=== PATIENT | male | born 1965 | race Caucasian/White ===

== ENCOUNTER 2018-03-06 16:37 | Inpatient (IN) | payer MEDICAID ==
[2018-03-06] MEDS ORDERED: SODIUM CHLORIDE 0.9% 1,000 ML IV STA ×4 (16:40→20:18)
--- NOTE | 2018-03-06 16:41 | ED ---
Chest Pain HPI - General Source: RN notes reviewed, old records reviewed - History of Present Illness Complaint: other -: hour(s) Onset: during exertion Pain Location: substernal Pain Radiation: none Severity: moderate Severity scale (1-10): 7 Consistency: constant Improves With: nothing Worsens With: nothing Anginal Symptoms: diaphoresis Other Symptoms: palpitations <Raffi Downs - Last Filed: 03/06/18 20:18> <Randy Kapoor - Last Filed: 03/06/18 23:26> - General Stated Complaint: Palpitations Time Seen by Provider: 03/06/18 16:40 - History of Present Illness Initial Comments: This is a 53-year-old male to the ER for evaluation. Patient has history of SVT. Patient has elevated heart rate presented ER today for elevated heart discernible shoveling snow. No chest pain. Per EMS patient was given 60 1212 of adenosine as well as cardioversion with no significant help. Patient does admit to palpitations and tachycardia, denies. (Raffi Downs) - Related Data Home Medications Medication Instructions Recorded Confirmed Amitriptyline HCl [Elavil] 150 mg PO HS 03/06/18 03/06/18 HYDROcodone/APAP 7.5-325MG [[place] 1 tab PO Q4H PRN 03/06/18 03/06/18 7.5-325] Metoprolol Tartrate [Lopressor] 25 mg PO BID 03/06/18 03/06/18 Omeprazole [PriLOSEC] 20 mg PO DAILY 03/06/18 03/06/18 Allergies Allergy/AdvReac Type Severity Reaction Status Date / Time No Known Allergies Allergy Verified 03/06/18 17:20 Review of Systems ROS Other: All systems not noted in ROS Statement are negative. <Raffi Downs - Last Filed: 03/06/18 20:18> ROS Other: All systems not noted in ROS Statement are negative. <Randy Kapoor - Last Filed: 03/06/18 23:26> ROS Statement: Those systems with pertinent positive or pertinent negative responses have been documented in the HPI. EKG Findings - EKG Comments: EKG Findings:: EKG shows sinus tachycardia rate of 47, WI 140, QRS 1:30, QTc 448 <RosRaffi talley - Last Filed: 03/06/18 20:18> General Exam General appearance: alert, anxious, in distress Head exam: Present: atraumatic, normocephalic, normal inspection Eye exam: Present: normal appearance, PERRL, EOMI. Absent: scleral icterus, conjunctival injection, periorbital swelling ENT exam: Present: normal exam, mucous membranes moist Neck exam: Present: normal inspection. Absent: tenderness, meningismus, lymphadenopathy Respiratory exam: Present: normal lung sounds bilaterally. Absent: respiratory distress, wheezes, rales, rhonchi, stridor Cardiovascular Exam: Present: tachycardia, normal heart sounds. Absent: systolic murmur, diastolic murmur, rubs, gallop, clicks GI/Abdominal exam: Present: soft, normal bowel sounds. Absent: distended, tenderness, guarding, rebound, rigid Extremities exam: Present: normal inspection, full ROM, normal capillary refill. Absent: tenderness, pedal edema, joint swelling, calf tenderness Back exam: Present: normal inspection Neurological exam: Present: alert, oriented X3, CN II-XII intact Psychiatric exam: Present: normal affect, normal mood Skin exam: Present: warm, dry, intact, normal color. Absent: rash <Raffi Downs B - Last Filed: 03/06/18 20:18> Course <Raffi Downs B - Last Filed: 03/06/18 20:18> <Randy Kapoor D - Last Filed: 03/06/18 23:26> Vital Signs 03/06/18 03/06/18 03/06/18 17:11 17:13 17:41 Temperature Pulse Rate 184 H 163 H Pulse Rate [ 186 H Conditioning Machine Operator ] Respiratory 16 16 Rate Blood Pressure 124/82 89/73 O2 Sat by Pulse 96 96 Oximetry 03/06/18 03/06/18 03/06/18 18:00 18:16 19:00 Temperature 98.3 F Pulse Rate 156 H 149 H 151 H Pulse Rate [ Conditioning Machine Operator ] Respiratory 16 16 Rate Blood Pressure 101/87 96/63 O2 Sat by Pulse 97 99 Oximetry 03/06/18 03/06/18 03/06/18 19:18 19:50 21:00 Temperature 97.9 F Pulse Rate 151 H 161 H Pulse Rate [ Conditioning Machine Operator ] Respiratory 16 18 Rate Blood Pressure 101/54 113/52 96/62 O2 Sat by Pulse 98 97 Oximetry 03/06/18 03/06/18 03/06/18 21:42 22:00 22:20 Temperature 97.5 F L Pulse Rate 160 H 144 H 144 H Pulse Rate [ Conditioning Machine Operator ] Respiratory 16 Rate Blood Pressure 104/75 O2 Sat by Pulse 98 Oximetry - Reevaluation(s) Reevaluation #1: 03/06/18 20:10 Medical record reviewed (Raffi Downs) Reevaluation #2: 03/06/18 20:10 Patient given Cardizem 15 mg 2, metoprolol 5 mg. 03/06/18 20:19 A she given metoprolol 5 mg again (Raffi Downs) Chest Pain MDM <Raffi Downs - Last Filed: 03/06/18 20:18> <Randy Kapoor - Last Filed: 03/06/18 23:26> - MDM 53 male to the ED co SVT, palpitations, failing rate control, spoke with cardiology (Raffi Downs) While awaiting transfer to intensive care unit received a call from documentation improvement specialist Dr. Loera who is checking up on patient. Patient had been given the bolus of amiodarone. He request that patient had attempted cardioversion after 30 minutes if patient had not converted. Discussed risk and benefits of cardioversion with patient. Patient did not want to receive cardioversion. Patient and patient's family member requested I contact patient's qa developer. Spoke with Dr. Pollard from [facility] who is a partner of Dr. Araujo patient's EP doctor recommends that patient be continued on amiodarone drip. He does not recommend cardioversion at this time. Dr. Pollard is open to patient being transferred however is not urgent and given that transportation conditions due to snow he does not believe that transfer is necessary immediately. Patient does request to be admitted to intensive care unit here at our hospital. He will yet decided if he wants to be transferred to [facility] to be under the care of his established EP documentation improvement specialist. Patient continues to be improved with amiodarone drip. His heart rate is now in the 140s. Patient's hemodynamics are stable. (Randy Kapoor) Critical Care Time Critical Care Time: Yes Total Critical Care Time: 65 <Raffi Downs - Last Filed: 03/06/18 20:18> Disposition Is patient prescribed a controlled substance at d/c from ED?: No <Raffi Downs - Last Filed: 03/06/18 20:18> <Randy Kapoor - Last Filed: 03/06/18 23:26> Clinical Impression: Tachycardia, Palpitations, Supraventricular tachycardia Disposition: ADMITTED IP TO THIS HOSP Condition: Fair Referrals: Nonstaff,Physician [REFERRING] - 1-2 days
[2018-03-06] MEDS ORDERED: DILTIAZEM DRIP BOLUS FROM BAG 1 MG SOLN IV ONE ×2 (16:57→18:13)
[2018-03-06 17:01] LABS: Basophils # (A) 0.1 k/uL (0-0.2); Basophils % (A) 1 %; Eosinophils # (A) 2.5 k/uL (0-0.7); HGB 15.1 gm/dL (13.0-17.5); Lymphocytes # (A) 2.5 k/uL (1.0-4.8); Lymphocytes % (A) 23 %; MCH 29.9 pg (25.0-35.0); MCHC 32.8 g/dL (31.0-37.0); MCV 91.3 fL (80.0-100.0); Mean Platelet Volume 6.4; Monocytes # (A) 0.4 k/uL (0-1.0); Monocytes % (A) 4 %; Neutrophils % (A) 47 %; Platelet Count 281 k/uL (150-450); RBC 5.04 m/uL (4.30-5.90); RDW 13.5 % (11.5-15.5); WBC 10.6 k/uL (3.8-10.6)
[2018-03-06 17:03] LABS: Eosinophils % (A) 23 %
[2018-03-06 17:10] LABS: D-Dimer 0.3 mg/L FEU (<0.60); INR 0.9 (<1.2); Partial Thromboplastin Time 24.6 sec (22.0-30.0); Prothrombin Time 10.1 sec (9.0-12.0)
[2018-03-06 17:12] LABS: ALT 37 U/L (21-72); AST 20 U/L (17-59); Albumin 4.1 g/dL (3.5-5.0); Alkaline Phosphatase 100 U/L (38-126); Anion Gap 8 mmol/L; Blood Urea Nitrogen 19 mg/dL (9-20); Calcium 9.4 mg/dL (8.4-10.2); Carbon Dioxide 24 mmol/L (22-30); Chloride 110 mmol/L (98-107); Creatine Kinase 91 U/L (55-170); Glucose 123 mg/dL (74-99); Magnesium 1.7 mg/dL (1.6-2.3); Phosphorus 3.6 mg/dL (2.5-4.5); Potassium 4.4 mmol/L (3.5-5.1); Sodium 142 mmol/L (137-145); Total Bilirubin 0.3 mg/dL (0.2-1.3); Total Protein 7.1 g/dL (6.3-8.2)
[2018-03-06 17:23] LABS: Creatine Kinase MB 0.7 ng/mL (0.0-2.4); Troponin I <0.012 ng/mL (0.000-0.034)
[2018-03-06] MEDS: DILTIAZEM 50 MG in SODIUM CHLORIDE 0.9% 40 ML IV SCH (17:31)
[2018-03-06] MEDS ORDERED: METOPROLOL TARTRATE 5 MG/5 ML VIAL IVP STA ×2 (19:01→20:11)
[2018-03-06] MEDS ORDERED: NITROGLYCERIN SL TABS 0.4 MG TAB SUBLINGUAL PRN (20:20)
[2018-03-06] MEDS ORDERED: METOPROLOL TARTRATE 5 MG/5 ML VIAL IVP SCH (20:30)
[2018-03-06] MEDS ORDERED: DEXTROSE 5% IN WATER 100 ML with AMIODARONE 150 MG IV ONE (20:44)
[2018-03-06] MEDS ORDERED: AMIODARONE 450 MG in DEXTROSE 5% IN WATER 250 ML IV ONE ×2 (20:44)
[2018-03-06] MEDS ORDERED: clonazePAM 0.5 MG TAB PO STA (21:21)
[2018-03-06] MEDS: MAGNESIUM SULFATE-D5W PMX 1 GM in DEXTROSE/WATER 1 100ML.BAG IVPB SCH (22:33)
[2018-03-06] MEDS ORDERED: ADENOSINE 3 MG/ML 2 ML VIAL IVP STA (22:48)
[2018-03-06] MEDS ORDERED: ETOMIDATE 2 MG/ML 10 ML VIAL IVP STA (22:48)
[2018-03-06 23:10] LABS: Creatine Kinase MB 1.2 ng/mL (0.0-2.4)
[2018-03-06 23:25] LABS: Troponin I 0.256 ng/mL (0.000-0.034)
[2018-03-07] MEDS: MAGNESIUM SULFATE-D5W PMX 1 GM in DEXTROSE/WATER 1 100ML.BAG IVPB SCH ×2 (02:31→05:20)
[2018-03-07] MEDS: METOPROLOL TARTRATE 50 MG TAB PO SCH ×2 (02:35→08:56)
[2018-03-07 03:11] LABS: Glucose,Whole Blood 104 mg/dL (75-99)
[2018-03-07] MEDS: SODIUM CHLORIDE 0.9% 1,000 ML IV SCH ×3 (05:21→17:56)
[2018-03-07 05:35] LABS: Anion Gap 5 mmol/L; Blood Urea Nitrogen 14 mg/dL (9-20); Carbon Dioxide 22 mmol/L (22-30); Chloride 113 mmol/L (98-107); Cholesterol 138 mg/dL (<200); Glucose 118 mg/dL (74-99); HDL Cholesterol 34 mg/dL (40-60); LDL Cholesterol,Calculated 87 mg/dL (0-99); Magnesium 2.2 mg/dL (1.6-2.3); Phosphorus 2.9 mg/dL (2.5-4.5); Potassium 4.4 mmol/L (3.5-5.1); Sodium 140 mmol/L (137-145); Triglycerides 83 mg/dL (<150)
[2018-03-07 05:44] LABS: Basophils # (A) 0.1 k/uL (0-0.2); Basophils % (A) 0 %; Eosinophils # (A) 1.8 k/uL (0-0.7); Eosinophils % (A) 15 %; HCT 43.5 % (39.0-53.0); HGB 13.6 gm/dL (13.0-17.5); Lymphocytes # (A) 2.7 k/uL (1.0-4.8); Lymphocytes % (A) 23 %; MCH 29.3 pg (25.0-35.0); MCHC 31.4 g/dL (31.0-37.0); MCV 93.4 fL (80.0-100.0); Mean Platelet Volume 6.8; Monocytes # (A) 0.6 k/uL (0-1.0); Monocytes % (A) 5 %; Neutrophils # (A) 6.5 k/uL (1.3-7.7); Neutrophils % (A) 54 %; Platelet Count 228 k/uL (150-450); RBC 4.65 m/uL (4.30-5.90); RDW 13.6 % (11.5-15.5)
[2018-03-07] MEDS: DILTIAZEM 50 MG in SODIUM CHLORIDE 0.9% 40 ML IV SCH ×2 (05:45→09:00)
[2018-03-07 05:58] LABS: Creatine Kinase MB 2.1 ng/mL (0.0-2.4)
[2018-03-07 06:07] LABS: Troponin I 0.265 ng/mL (0.000-0.034)
--- NOTE | 2018-03-07 07:27 | P.CRDCN ---
History of Present Illness Consult date: 03/07/18 Chief complaint: Palpitation History of present illness: This is a pleasant 53-year-old gentleman with a past medical history significant for history of ventricular tachycardia who follows with a director of elementary education in [facility] was brought to the emergency room complaining of heart racing. The patient was in his usual state of health yesterday when he was trying to help shoveling the snow outside and suddenly he felt his heart started racing. No symptoms of dizziness or lightheadedness. No syncope. No chest pain or chest discomfort. He just felt weak. Ambulance was called and the patient was found to be in wide complex tachycardia with RBBB morphology. He was given 6 and then 12 mg of adenosine without any success. Subsequently he underwent synchronized cardioversion which was also unsuccessful. The patient was started on amiodarone IV and was brought to the emergency room. The patient stated that about a year and a half ago he was diagnosed with ventricular tachycardia and he underwent an EP study and attempted ablation which was unsuccessful. At that point he was placed on metoprolol by mouth. He was discharged in stable medical condition. He stated that he was taking his medications on a regular basis. I did review the EKGs during this admission and it did show wide complex tachycardia with RBBB morphology. No discrete atrial wave seen. The troponin is a slightly abnormal which could be related to the tachycardia and heart rate in 134 the last 12 hours. He continues to be on amiodarone IV at this point. He continues to be asymptomatic and denies having any chest pain or discomfort or shortness of breath or dizziness or lightheadedness. I'm going to obtain an echocardiogram was Doppler to evaluate the left ventricle systolic function. Also check TSH and free T4 to rule out hypo-/ hyperthyroidism. Also will consult EP to see the patient. Past Medical History Past Medical History: GERD/Reflux, Supraventricular Tachycardia (SVT) History of Any Multi-Drug Resistant Organisms: None Reported Past Surgical History: Cardiac Ablation Additional Past Surgical History / Comment(s): nasal Past Psychological History: Depression Smoking Status: Former smoker Past Alcohol Use History: Rare Past Drug Use History: None Reported - Past Family History Father Family Medical History: Diabetes Mellitus Mother History Unknown: Yes Medications and Allergies Home Medications Medication Instructions Recorded Confirmed Type Amitriptyline HCl [Elavil] 150 mg PO HS 03/06/18 03/06/18 History HYDROcodone/APAP 7.5-325MG [[place] 1 tab PO Q4H PRN 03/06/18 03/06/18 History 7.5-325] Metoprolol Tartrate [Lopressor] 25 mg PO BID 03/06/18 03/06/18 History Omeprazole [PriLOSEC] 20 mg PO DAILY 03/06/18 03/06/18 History clonazePAM [KlonoPIN] 0.5 mg PO HS 03/07/18 03/07/18 History Allergies Allergy/AdvReac Type Severity Reaction Status Date / Time No Known Allergies Allergy Verified 03/06/18 17:20 Physical Exam Vitals: Vital Signs Temp Pulse Pulse Resp BP Pulse Ox 03/07/18 06:30 133 H 19 119/89 03/07/18 06:00 134 H 19 114/92 97 03/07/18 05:30 134 H 20 119/92 95 03/07/18 05:00 133 H 15 119/92 97 03/07/18 04:30 137 H 35 H 126/99 96 03/07/18 04:00 97.9 F 131 H 88 H 114/89 94 L 03/07/18 03:30 128 H 8 L 112/85 96 03/07/18 03:15 97 03/07/18 03:10 133 H 16 03/07/18 03:00 130 H 15 96 03/07/18 02:30 97.9 F 134 H 18 120/86 98 03/07/18 02:00 138 H 16 107/83 97 03/07/18 01:30 138 H 17 114/86 03/07/18 01:04 98.0 F 141 H 18 95/78 98 03/07/18 01:00 142 H 16 96/80 98 03/07/18 00:30 146 H 7 L 98/78 97 03/07/18 00:00 146 H 0 L 103/79 97 03/06/18 23:00 97.8 F 146 H 16 103/79 99 03/06/18 22:20 144 H 03/06/18 22:00 144 H 03/06/18 21:42 97.5 F L 160 H 16 104/75 98 03/06/18 21:00 97.9 F 161 H 18 96/62 97 01/28/19 19:50 113/52 03/06/18 19:18 151 H 16 101/54 98 03/06/18 19:00 98.3 F 151 H 16 96/63 99 03/06/18 18:16 149 H 03/06/18 18:00 156 H 16 101/87 97 03/06/18 17:41 163 H 16 89/73 96 03/06/18 17:13 184 H 16 124/82 96 03/06/18 17:11 186 H Intake and Output 03/06/18 03/07/18 03/07/18 22:59 06:59 14:59 Intake Total 400 Output Total 300 Balance 100 Intake: IV 400 Sodium Chloride 0.9% 1, 400 000 ml @ 100 mls/hr IV . Q10H STA Rx#:[id number] Output: Urine 300 Other: # Voids 0 Weight 90.718 kg - Constitutional General appearance: no acute distress - Respiratory Respiratory: bilateral: CTA - Cardiovascular Rhythm: regular Heart sounds: normal: S1, S2 Results 03/07/18 04:53 03/07/18 04:53 Cardiac Enzymes 03/06/18 03/06/18 03/06/18 Range/Units 16:45 16:45 22:19 AST 20 (17-59) U/L CK-MB (CK-2) 0.7 1.2 (0.0-2.4) ng/mL Troponin I <0.012 0.256 H* (0.000-0.034) ng/mL 03/07/18 Range/Units 04:53 AST (17-59) U/L CK-MB (CK-2) 2.1 (0.0-2.4) ng/mL Troponin I 0.265 H* (0.000-0.034) ng/mL Coagulation 03/06/18 Range/Units 16:45 PT 10.1 (9.0-12.0) sec APTT 24.6 (22.0-30.0) sec Lipids 03/07/18 Range/Units 04:53 Triglycerides 83 (<150) mg/dL Cholesterol 138 (<200) mg/dL HDL Cholesterol 34 L (40-60) mg/dL CBC 03/06/18 03/07/18 Range/Units 16:45 04:53 WBC 10.6 12.0 H (3.8-10.6) k/uL RBC 5.04 4.65 (4.30-5.90) m/uL Hgb 15.1 13.6 (13.0-17.5) gm/dL Hct 46.0 43.5 (39.0-53.0) % Plt Count 281 228 (150-450) k/uL Comprehensive Metabolic Panel 03/06/18 03/07/18 Range/Units 16:45 04:53 Sodium 142 140 (137-145) mmol/L Potassium 4.4 4.4 (3.5-5.1) mmol/L Chloride 110 H 113 H (98-107) mmol/L Carbon Dioxide 24 22 (22-30) mmol/L BUN 19 14 (9-20) mg/dL Creatinine 0.84 0.66 (0.66-1.25) mg/dL Glucose 123 H 118 H (74-99) mg/dL Calcium 9.4 8.0 L (8.4-10.2) mg/dL AST 20 (17-59) U/L ALT 37 (21-72) U/L Alkaline Phosphatase 100 (38-126) U/L Total Protein 7.1 (6.3-8.2) g/dL Albumin 4.1 (3.5-5.0) g/dL Current Medications Generic Name Dose Route Start Last Admin Trade Name Freq PRN Reason Stop Dose Admin Aspirin 325 mg 03/07/18 09:00 Aspirin PO DAILY [facility] Enoxaparin Sodium 40 mg 03/07/18 09:00 Lovenox SQ DAILY SANDI Famotidine 20 mg 03/07/18 09:00 Pepcid PO BID SANDI Diltiazem HCl 50 mg/ Sodium 50 mls @ 5 mls/hr 03/06/18 17:00 03/07/18 05:45 Chloride IV Not Given .Q10H SANDI 5 MG/HR Sodium Chloride 1,000 mls @ 100 mls/hr 03/06/18 20:30 03/07/18 05:21 Saline 0.9% IV 100 mls/hr .Q10H SANDI Administration Amiodarone HCl 450 mg/ 250 mls @ 16.66 mls/hr 03/07/18 05:30 Dextrose/Water IV 03/08/18 05:30 .Q15H1M SANDI 0.5 MG/MIN Metoprolol Tartrate 50 mg 03/06/18 21:00 03/07/18 02:35 Lopressor PO Not Given BID SANDI Nitroglycerin 0.4 mg 03/06/18 20:20 Nitrostat SUBLINGUAL Q5M PRN Chest Pain Intake and Output 03/06/18 03/07/18 03/07/18 22:59 06:59 14:59 Intake Total 400 Output Total 300 Balance 100 Intake: IV 400 Sodium Chloride 0.9% 1, 400 000 ml @ 100 mls/hr IV . Q10H STA Rx#:[id number] Output: Urine 300 Other: # Voids 0 Weight 90.718 kg 03/07/18 04:53 03/07/18 04:53 Assessment and Plan Assessment: Assessment #1 ventricular tachycardia of RBBB morphology. Plan #1 the patient has been maintaining good blood pressure with his heart rate #2 continue amiodarone IV at this point #3 resume metoprolol by mouth #4 continue IV fluid #5 TSH free T4 #6 an echocardiogram was Doppler #7 EP consult #8 follow-up with the patient.
[2018-03-07] MEDS: AMIODARONE 450 MG in DEXTROSE 5% IN WATER 250 ML IV SCH ×4 (08:00→21:16)
--- NOTE | 2018-03-07 08:05 | XR ---
EXAMINATION TYPE: XR chest 1V DATE OF EXAM: 03/07/2018 CLINICAL HISTORY: Shortness of breath with exertion. TECHNIQUE: Single AP portable upright view of the chest is obtained. COMPARISON: None FINDINGS: Defibrillator pad overlies right mid chest. There is chronic parenchymal change without campo spicious focal airspace opacity, pleural effusion, or pneumothorax seen bilaterally. The cardiac silh ouette size is upper limits of normal in size. Osseous structures are intact. IMPRESSION: No suspicious acute pulmonary process.
[2018-03-07] MEDS: ENOXAPARIN 40 MG/0.4 ML SYRINGE SQ SCH (08:56)
[2018-03-07] MEDS: ASPIRIN 325 MG TAB PO SCH (08:56)
[2018-03-07] MEDS: FAMOTIDINE 20 MG TAB PO SCH ×2 (08:56→21:16)
--- NOTE | 2018-03-07 09:48 | CONS ---
CONSULTATION DATE OF SERVICE: 03/07/2018 This is a patient who was admitted on the 03/06 and transferred to the ICU from the ER on March 07. He apparently came in because of rapid heart rate and supraventricular tachycardia. EMS apparently tried cardioversion. They also tried some adenosine 6 mg, 12 mg and 12 mg in succession. In addition, the patient received metoprolol and Cardizem without benefit. Finally, the ER doctor called the patient's obstetrics gyn out at [facility] and amiodarone was recommended. The patient was placed on amiodarone at 0.5 mg/minute. The patient is also getting a 0.9 IV at 100 mL an hour, nasal O2 at 2 L/minute. The patient does have a history of chronic SVT, chronic tobacco dependence in the past, depression, and gastroesophageal reflux disease. The patient had troponins that were elevated at 0.256 and 0.265. TSH was normal. His heart rate is currently about 140 beats per minute. Anyway, the patient was admitted for that reason here to the ICU. I did speak to the ER physician. HOME MEDICATIONS: Include Elavil, [place], metoprolol and Prilosec. ALLERGIES: Denied. PAST MEDICAL HISTORY: Includes gastroesophageal reflux disease, SVT, and depression. The patient also has a previous history of tobacco dependence. Surgical history is remote. Social and family history is not too remarkable, save for the tobacco use. No history of alcohol use. No illicit drug use. REVIEW OF SYSTEMS: CONSTITUTIONAL: Negative. NEUROLOGIC: Negative. HEENT: Negative. CARDIOVASCULAR: Palpitations, tachycardia, chest discomfort. PULMONARY: Negative. GI: Negative. : Negative. RHEUMATOLOGIC/IMMUNOLOGIC: Negative. ENDOCRINOLOGIC: Negative. DERMATOLOGIC: Negative. Current vital signs are reviewed. Temperature is 97.9, heart rate 140, respiratory rate 20, blood pressure 114/92, mean 99. Saturation on 2 L, 97% to 99%. Appears in no acute distress. HEENT examination is grossly unremarkable. Mucous membranes are moist. No oral lesions. Nasal O2 in place. Neck is supple. Full range of motion. No adenopathy or thyromegaly. Neck veins are flat. Cardiovascular examination reveals tachycardia. Heart rate about 135-140 beats per minute. It seems relatively regular. No murmur noted. Lungs are clear. Breath sounds are equal. Abdomen is soft. Bowel sounds are heard. No masses or tenderness. Extremities are intact. No cyanosis, clubbing, or edema. Skin without rash. Neurologic examination is brief but nonfocal. LABS: Reviewed. White count 12, hemoglobin 13.6, hematocrit 43.5, platelet count 228,000. Sodium, potassium normal. Chloride is 113, CO2 is 22; BUN and creatinine were 14 and 0.66. The patient's comprehensive metabolic profile is otherwise normal. I have already mentioned the troponins. TSH was normal at 2.080. Calcium is 8.0. Glucose is noted. Lactic acid is normal at 1.1. Chest x-ray shows no acute cardiopulmonary disease. Medications are reviewed. Currently, the patient is on appropriate medications as mentioned. ASSESSMENT: 1. Acute paroxysmal supraventricular tachycardia in a patient with a history of chronic supraventricular tachycardia. 2. Gastroesophageal reflux disease. 3. Previous history of tobacco use. 4. History of depression. 5. Chest pain, rule out non ST-segment elevation myocardial infarction versus elevated troponin secondary to supply-demand mismatch. PLAN: The patient remains on some saline at 100 mL an hour. The patient is currently on Cordarone or amiodarone 0.5 mg/minute. The patient is receiving nasal O2. Dr. Nicolsa has already seen the patient. The patient will have an echocardiogram. In addition, Dr. Nicolas is going to have his partner, Dr. Iverson see the patient from the electrophysiologic standpoint. There was contact made with the patient's obstetrics gyn over at [facility]. He was the one who recommended the amiodarone. No additional recommendations are made. Prognosis is guarded. MMODL / IJN: [id number] /
[2018-03-07] MEDS ORDERED: PANTOPRAZOLE 40 MG TABLET PO SCH (10:45)
--- NOTE | 2018-03-07 10:51 | P.HPIM ---
History of Present Illness H&P Date: 03/07/18 Chief Complaint: Severe tachycardia, ventricular tachycardia, shortness of breath, GERD and 53-year-old male one of Dr. 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 Patient ended up coming to demurs department pulse rate remain are bound 100 [id number] bpm initially was started on Cardizem drip not successful cardiology were contacted and end up having him start on amiodarone at that point patient was sent to the intensive care unit and Dr. Iverson was notify on his admission. Review of Systems CONSTITUTIONAL: Well-developed no acute respiratory distress. EYES: No icterus sclerae, no conjunctivitis. EARS, NOSE, MOUTH, THROAT, and FACE: No sore throat, lymphadenopathy, carotid bruits or deformity. RESPIRATORY: No SOB cough or wheezes. CARDIOVASCULAR: Positive dyspnea, positive palpitation, positive PND, positive chest pain GASTROINTESTINAL: No Abd pain, Nausea or vomiting, no Diarrhea or constipation, No GI Bleed, no distention or masses. GENITOURINARY: Negative for Hematuria or UTI, no kidney stones. INTEGUMENT/BREAST: Negative for any muscular injury with mild osteoarthritis.. HEMATOLOGIC/LYMPHATIC: Negative for bleed or purpura. MUSCULOSKELTAL: Negative for Myalgia or arthralgia. NEURLOGICAL: No LOC, Sz or syncope, blurred vision dizziness or abnormality.. BEHAVIORAL/PSYCH: Negative. ENDOCRINE: Negative. Past Medical History Past Medical History: GERD/Reflux, Supraventricular Tachycardia (SVT) History of Any Multi-Drug Resistant Organisms: None Reported Past Surgical History: Cardiac Ablation Additional Past Surgical History / Comment(s): nasal Past Psychological History: Depression Smoking Status: Former smoker Past Alcohol Use History: Rare Past Drug Use History: None Reported - Past Family History Father Family Medical History: Diabetes Mellitus Mother History Unknown: Yes Medications and Allergies Home Medications Medication Instructions Recorded Confirmed Type Amitriptyline HCl [Elavil] 150 mg PO HS 03/06/18 03/06/18 History HYDROcodone/APAP 7.5-325MG [Bellflower 1 tab PO Q4H PRN 03/06/18 03/06/18 History 7.5-325] Metoprolol Tartrate [Lopressor] 25 mg PO BID 03/06/18 03/06/18 History Omeprazole [PriLOSEC] 20 mg PO DAILY 03/06/18 03/06/18 History clonazePAM [KlonoPIN] 0.5 mg PO HS 03/07/18 03/07/18 History Allergies Allergy/AdvReac Type Severity Reaction Status Date / Time No Known Allergies Allergy Verified 03/06/18 17:20 Physical Exam Vitals: Vital Signs Temp Pulse Pulse Resp BP Pulse Ox 03/07/18 09:00 142 H 22 126/93 96 03/07/18 08:30 141 H 18 127/93 97 03/07/18 08:00 97.8 F 138 H 133 H 18 129/100 97 03/07/18 07:30 137 H 17 127/93 96 03/07/18 07:00 141 H 14 122/98 96 03/07/18 06:30 133 H 19 119/89 03/07/18 06:00 134 H 19 114/92 97 03/07/18 05:30 134 H 20 119/92 95 03/07/18 05:00 133 H 15 119/92 97 03/07/18 04:30 137 H 35 H 126/99 96 03/07/18 04:00 97.9 F 131 H 88 H 114/89 94 L 03/07/18 03:30 128 H 8 L 112/85 96 03/07/18 03:15 97 03/07/18 03:10 133 H 16 03/07/18 03:00 130 H 15 96 03/07/18 02:30 97.9 F 134 H 18 120/86 98 03/07/18 02:00 138 H 16 107/83 97 03/07/18 01:30 138 H 17 114/86 03/07/18 01:04 98.0 F 141 H 18 95/78 98 03/07/18 01:00 142 H 16 96/80 98 03/07/18 00:30 146 H 7 L 98/78 97 03/07/18 00:00 146 H 0 L 103/79 97 03/06/18 23:00 97.8 F 146 H 16 103/79 99 03/06/18 22:20 144 H 03/06/18 22:00 144 H 03/06/18 21:42 97.5 F L 160 H 16 104/75 98 03/06/18 21:00 97.9 F 161 H 18 96/62 97 03/06/18 19:50 113/52 03/06/18 19:18 151 H 16 101/54 98 03/06/18 19:00 98.3 F 151 H 16 96/63 99 03/06/18 18:16 149 H 03/06/18 18:00 156 H 16 101/87 97 03/06/18 17:41 163 H 16 89/73 96 03/06/18 17:13 184 H 16 124/82 96 03/06/18 17:11 186 H Intake and Output 03/06/18 03/07/18 03/07/18 22:59 06:59 14:59 Intake Total 400 700 Output Total 300 700 Balance 100 0 Intake: IV 400 300 Sodium Chloride 0.9% 1, 400 300 000 ml @ 100 mls/hr IV . Q10H STA Rx#:[id number] Oral 400 Output: Urine 300 700 Other: # Voids 0 0 Weight 90.718 kg General Appearance: Alert, cooperative, no distress, appears stated age. Neck HEENT: Supple, no lymphadenopathy, no thyroid enlargement, no carotid bruits. Lungs: Clear to auscultation without crackles or wheezes no rhonchi, no deformity. Chest Wall: Chest wall normal expansion with deep inspiration no tenderness and no deformity was found on exam, no costochondral pain or discomfort. Heart: Irregular rhythm and rate S1-S2 positive street positive tachycardia with pulse rate running 100 4250 beats per minutes. Back: Symmetric, no curvature, ROM normal, no CVA tenderness. Abdomen: Soft, non-tender, bowel sounds active all four quadrants, no masses, no organomegaly. Extremities: Extremities normal, atraumatic, no cyanosis or edema. Pulses: 2+ and symmetric. Skin: Skin color, texture, tugor normal, no rashes or lesions. Neurologic: Alert oriented x3 cranial nerves II through XII intact, no motor deficit, no abnormal balance or gait. Results CBC & Chem 7: 03/07/18 04:53 03/07/18 04:53 Labs: Abnormal Lab Results - Last 24 Hours (Table) 03/06/18 03/06/18 03/06/18 Range/Units 16:45 16:45 22:19 WBC (3.8-10.6) k/uL Eosinophils # 2.5 H (0-0.7) k/uL Chloride 110 H (98-107) mmol/L Glucose 123 H (74-99) mg/dL POC Glucose (mg/dL) (75-99) mg/dL Calcium (8.4-10.2) mg/dL Troponin I 0.256 H* (0.000-0.034) ng/mL HDL Cholesterol (40-60) mg/dL 03/07/18 03/07/18 03/07/18 Range/Units 03:00 04:53 04:53 WBC 12.0 H (3.8-10.6) k/uL Eosinophils # 1.8 H (0-0.7) k/uL Chloride (98-107) mmol/L Glucose (74-99) mg/dL POC Glucose (mg/dL) 104 H (75-99) mg/dL Calcium (8.4-10.2) mg/dL Troponin I 0.265 H* (0.000-0.034) ng/mL HDL Cholesterol (40-60) mg/dL 03/07/18 Range/Units 04:53 WBC (3.8-10.6) k/uL Eosinophils # (0-0.7) k/uL Chloride 113 H (98-107) mmol/L Glucose 118 H (74-99) mg/dL POC Glucose (mg/dL) (75-99) mg/dL Calcium 8.0 L (8.4-10.2) mg/dL Troponin I (0.000-0.034) ng/mL HDL Cholesterol 34 L (40-60) mg/dL Thrombosis Risk Factor Assmnt - DVT/VTE Prophylaxis DVT/VTE Prophylaxis: Pharmacologic Prophylaxis ordered, Mechanical Prophylaxis ordered - Choose All That Apply Each Factor Represents 1 point: Age 41-60 years, Obesity (BMI >25) Other Risk Factors: No Other congenital or acquired thrombophilia - If yes, enter type in comment: No Thrombosis Risk Factor Assessment Total Risk Factor Score: 2 Thrombosis Risk Factor Assessment Level: Low Risk Assessment and Plan Plan: 1 ventricular tachycardia: Patient still on amiodarone drip currently was seen cardiology, will be seen electrophysiology and if amiodarone doesn't work hopefully will be on different antiarrhythmic. Patient might need cardioversion and eventually probably need to go for ablation therapy. Continue anticoagulation as well. 2 chest pain and mildly elevated troponin: Not a clear whether this is non-ST GA according to patient had completely negative heart cath 2 years ago when he had first episode echocardiogram and further management by cardiology to follow. 3 severe GERD: Has been on omeprazole which will be continued for now. 4 jaw pain: Post with cannot recently with his dentist is supposed to go for further workup on it I can feel or see any abscess patient will be on smaller dose of hydrocodone for pain. 5 chronic depression: Has been on Elavil continue medication still on smaller dose of clonazepam for insomnia as well. 6 GI prophylaxis: Patient is on omeprazole. 7 DVT prophylaxis: Continue anticoagulation for now. CODE STATUS: Full code. Admit patient to inpatient for more than 2 nights.
[2018-03-07] MEDS: HYDROcodone/APAP 7.5-325MG 1 EACH TAB PO PRN ×2 (11:20→17:56)
[2018-03-07 13:38] LABS: Appearance,Urine Clear (Clear); Bilirubin,Urine Negative (Negative); Blood,Urine Negative (Negative); Color,Urine Light Yellow; Glucose,Urine (UA) Negative (Negative); Ketones,Urine Negative (Negative); Leukocyte Esterase,Urine Negative (Negative); Nitrite,Urine Negative (Negative); PH, Urine 6.5 (5.0-8.0); Protein,Urine Negative (Negative); Specific Gravity,Urine 1.011 (1.001-1.035); Urobilinogen,Urine <2.0 mg/dL (<2.0)
--- NOTE | 2018-03-07 18:40 | ECHOF ---
Referral Reason:dysrhythmias MEASUREMENTS -------- HEIGHT: 175.3 cm WEIGHT: 90.7 kg BP: 119/89 IVSd: 1.1 cm (0.6 - 1.1) LVIDd: 4.5 cm (3.9 - 5.3) LVPWd: 1.2 cm (0.6 - 1.1) IVSs: 1.4 cm LVIDs: 3.6 cm LVPWs: 1.2 cm LA Diam: 4.0 cm (2.7 - 3.8) RVIDd: 2.5 cm (< 3.3) LAESV Index (A-L): 29.81 ml/m Ao Diam: 3.5 cm (2.0 - 3.7) LA Diam: 4.2 cm (2.7 - 3.8) AV Cusp: 2.0 cm (1.5 - 2.6) EPSS: 0.2 cm MV E Gustavo: 0.83 m/s MV DecT: 103 ms MV A Gustavo: 0.32 m/s MV E/A Ratio: 20.75 RAP: 5.00 mmHg RVSP: 20.15 mmHg MV EF SLOPE: 217.62 mm/s (70 - 150) MV EXCURSION: 25.34 mm (> 18.000) FINDINGS -------- Undetermined rhythm. This was a technically good study. LV size, wall thickness and systolic function are normal, with an EF greater than 55%. The left awilda tricular size is normal. The right ventricle is normal in size. The left atrium is mildly dilated. LA is midly dilated 29-33ml/m2. The right atrial size is normal. The aortic valve is trileaflet, and appears structurally normal. No aortic stenosis or regurgitation. Mild mitral annular calcification present. Mild mitral regurgitation is present. Mild tricuspid regurgitation present. There is no evidence of pulmonary hypertension. The right v entricular systolic pressure, as measured by Doppler, is 20.15mmHg. There is no pulmonic regurgitation present. The aortic root size is normal. There is no pericardial effusion. CONCLUSIONS -------- 1. LV size, wall thickness and systolic function are normal, with an EF greater than 55%. 2. The left ventricular size is normal. 3. The right ventricle is normal in size. 4. The left atrium is mildly dilated. 5. LA is midly dilated 29-33ml/m2. 6. The right atrial size is normal. 7. The aortic valve is trileaflet, and appears structurally normal. No aortic stenosis or regurgitati on. 8. Mild mitral annular calcification present. 9. Mild mitral regurgitation is present. 10. Mild tricuspid regurgitation present. 11. There is no evidence of pulmonary hypertension. 12. The right ventricular systolic pressure, as measured by Doppler, is 20.15mmHg. 13. There is no pulmonic regurgitation present. 14. The aortic root size is normal. 15. There is no pericardial effusion. [employer] MANAGER: Yane Butler RDCS
[2018-03-07] MEDS: AMITRIPTYLINE HCL 50 MG TAB PO SCH (21:17)
[2018-03-07] MEDS: clonazePAM 0.5 MG TAB PO SCH (21:17)
[2018-03-07] MEDS: VERAPAMIL SR 180 MG TABLET.ER PO SCH (21:17)
[2018-03-08] MEDS: SODIUM CHLORIDE 0.9% 1,000 ML IV SCH (04:40)
[2018-03-08 04:50] LABS: Basophils # (A) 0.1 k/uL (0-0.2); Basophils % (A) 1 %; Eosinophils # (A) 1.2 k/uL (0-0.7); Eosinophils % (A) 11 %; HCT 39.9 % (39.0-53.0); HGB 13.4 gm/dL (13.0-17.5); Lymphocytes # (A) 2.3 k/uL (1.0-4.8); Lymphocytes % (A) 21 %; MCH 31.2 pg (25.0-35.0); MCHC 33.5 g/dL (31.0-37.0); MCV 93.2 fL (80.0-100.0); Mean Platelet Volume 6.8; Monocytes # (A) 0.5 k/uL (0-1.0); Monocytes % (A) 4 %; Neutrophils # (A) 6.6 k/uL (1.3-7.7); Neutrophils % (A) 61 %; Platelet Count 203 k/uL (150-450); RBC 4.28 m/uL (4.30-5.90); RDW 13.3 % (11.5-15.5); WBC 10.8 k/uL (3.8-10.6)
[2018-03-08 05:02] LABS: Anion Gap 5 mmol/L; Blood Urea Nitrogen 13 mg/dL (9-20); Calcium 8.2 mg/dL (8.4-10.2); Carbon Dioxide 22 mmol/L (22-30); Chloride 111 mmol/L (98-107); Glucose 103 mg/dL (74-99); Magnesium 1.8 mg/dL (1.6-2.3); Potassium 4.1 mmol/L (3.5-5.1); Sodium 138 mmol/L (137-145)
[2018-03-08] MEDS ORDERED: Magnesium Replacement Protocol 1 EACH MISC MISCELLANE PRN (05:07)
[2018-03-08] MEDS: MAGNESIUM SULFATE-D5W PMX 1 GM in DEXTROSE/WATER 1 100ML.BAG IVPB SCH ×2 (05:23→06:47)
--- NOTE | 2018-03-08 05:47 | P.PN ---
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 The patient was in his usual state of health yesterday when he was trying to help shoveling the snow outside and suddenly he felt his heart started racing. No symptoms of dizziness or lightheadedness. No syncope. No chest pain or chest discomfort. He just felt weak. Ambulance was called and the patient was found to be in wide complex tachycardia with RBBB morphology. He was given 6 and then 12 mg of adenosine without any success. Subsequently he underwent synchronized cardioversion which was also unsuccessful. The patient was started on amiodarone IV and was brought to the emergency room. The patient stated that about a year and a half ago he was diagnosed with ventricular tachycardia and he underwent an EP study and attempted ablation which was unsuccessful. At that point he was placed on metoprolol by mouth. He was discharged in stable medical condition. He stated that he was taking his medications on a regular basis. I did review the EKGs during this admission and it did show wide complex tachycardia with RBBB morphology. No discrete atrial wave seen. The troponin is a slightly abnormal which could be related to the tachycardia and heart rate in 134 the last 12 hours. On follow-up with the patient today, March 082018, the patient converted to normal sinus mechanism yesterday on amiodarone IV. He was seen and evaluated by Dr. Iverson who started the patient on verapamil. He is off amiodarone right now. The echocardiogram revealed normal LV function without any significant valvular abnormalities. If the patient continues to be in sinus rhythm and continues to be asymptomatic he possibly can be discharged home today and follow-up as an outpatient. Objective - Vital Signs Vital signs: Vital Signs Temp 98.0 F 03/08/18 04:00 Pulse 69 03/08/18 05:00 Resp 15 03/08/18 05:00 BP 105/68 03/08/18 05:00 Pulse Ox 96 03/08/18 05:00 Intake & Output 03/07/18 03/07/18 03/08/18 06:59 18:59 06:59 Intake Total 400 2350 1421.023 Output Total 300 1325 1100 Balance 100 1025 321.023 Weight 96 kg Intake: IV 400 1200 1100 Sodium Chloride 0.9% 1, 400 1200 1100 000 ml @ 100 mls/hr IV . Q10H STA Rx#:[id number] Intake, IV Titration 221.023 Amount Amiodarone 450 mg In 221.023 Dextrose 5% in Water 250 ml @ 0.5 MG/MIN 16.66 mls /hr IV .Q15H1M SANDI Rx#: [id number] Oral 1150 100 Output: Urine 300 1325 1100 Other: # Voids 0 0 - Constitutional General appearance: Present: no acute distress - Respiratory Respiratory: bilateral: CTA - Cardiovascular Rhythm: regular Heart sounds: normal: S1, S2 - Labs CBC & Chem 7: 03/08/18 04:21 03/08/18 04:21 Labs: Abnormal Lab Results - Last 24 Hours (Table) 03/07/18 03/07/18 03/08/18 Range/Units 04:53 04:53 04:21 WBC 12.0 H 10.8 H (3.8-10.6) k/uL RBC 4.28 L (4.30-5.90) m/uL Eosinophils # 1.8 H 1.2 H (0-0.7) k/uL Chloride (98-107) mmol/L Glucose (74-99) mg/dL Calcium (8.4-10.2) mg/dL Troponin I 0.265 H* (0.000-0.034) ng/mL 03/08/18 Range/Units 04:21 WBC (3.8-10.6) k/uL RBC (4.30-5.90) m/uL Eosinophils # (0-0.7) k/uL Chloride 111 H (98-107) mmol/L Glucose 103 H (74-99) mg/dL Calcium 8.2 L (8.4-10.2) mg/dL Troponin I (0.000-0.034) ng/mL Assessment and Plan Assessment: Assessment #1 ventricular tachycardia of RBBB morphology. Plan #1 the patient converted to normal sinus mechanism. #2 currently he is on verapamil which she just started yesterday we'll continue that #3 the echo revealed normal LV function #4 the patient possibly can be discharged home later on today.
[2018-03-08] MEDS: FAMOTIDINE 20 MG TAB PO SCH ×2 (08:01→20:50)
[2018-03-08] MEDS: HYDROcodone/APAP 7.5-325MG 1 EACH TAB PO PRN ×3 (08:02→19:45)
[2018-03-08] MEDS: ASPIRIN 325 MG TAB PO SCH (08:02)
[2018-03-08] MEDS: ENOXAPARIN 40 MG/0.4 ML SYRINGE SQ SCH (09:00)
--- NOTE | 2018-03-08 10:40 | PN ---
PROGRESS NOTE DATE OF SERVICE: 03/08/2018 This is a very pleasant 53-year-old male admitted on the 06 of March. He was transferred to the ICU from the ER on the . He apparently developed a rapid heartbeat. He was found to have supraventricular tachycardia. EMS apparently tried cardioversion. That was unsuccessful. Subsequent to that, he received adenosine and 3 different doses of 6 mg, 12 mg and followup, 12 mg dose. Despite that, he did not resolve. He also received some beta richard in the form of metoprolol and also a nondihydropyridine calcium channel richard, i.e. Cardizem without benefit. Finally, the ER doctor called the patient's machine welt butter from [facility] and the patient was started on amiodarone. Yesterday, he was on amiodarone. Currently, the patient is not on any supplemental oxygen. He is receiving an IV of saline at 100 mL an hour. The patient is stable. From the standpoint of Cardiology, he could be transferred out of the unit. He did have mildly elevated troponins, likely related to supply demand mismatch. His TSH was normal. Today his heart rate is about 81 beats per minute. Yesterday when I saw him, he was at 140 beats per minute. The patient himself is feeling much improved. Current vital signs are reviewed. Temperature is 98 degrees, heart rate 81, respiratory rate 16, blood pressure 108/67, mean 80, saturation 97%. Appears in no acute distress. HEENT examination is grossly unremarkable. Mucous membranes are moist. No oral lesions. The patient is not receiving any supplemental oxygen. NECK: Supple. Full range of motion. No adenopathy, thyromegaly or neck vein distention. Cardiovascular examination reveals a regular rhythm and rate. Heart rate 80. S1, S2 normal. There are no murmurs. Lungs are clear. Breath sounds are equal. No wheezes, rhonchi, or crackles. Abdomen is soft. Bowel sounds are heard. No masses or tenderness. Extremities are intact. There is no cyanosis, clubbing, or edema. Skin without rash. Neurologic examination is brief, but nonfocal. LABS: Labs are reviewed. White count 10.8, hemoglobin 13.4, hematocrit 39.9, platelet count 203,000. Sodium 138, potassium 4.1, chloride 111, CO2 of 22, anion gap is 5. BUN and creatinine were 13 and 0.69. Troponins were noted. Urine is negative. No chest x-ray today. Medications are reviewed. ASSESSMENT: 1. Acute paroxysmal supraventricular tachycardia in a patient with a known history of chronic supraventricular tachycardia. 2. Gastroesophageal reflux disease. 3. Previous history of tobacco use. 4. History of depression. 5. Chest pain, likely not related to non ST-segment elevation myocardial infarction, but rather supply demand mismatch. 6. Previous history of ablations, which were unsuccessful. PLAN: The patient may come back to see Dr. Iverson here in Cardiology for attempted ablation. He states that he will not have an ablation done over at [facility]. Currently, he is stable. He is feeling much better. Will await cardiology's input. Additional recommendations and suggestions are forthcoming. The patient otherwise has no major complaints today. Hemodynamically, he is stable. His respiratory status is stable. We will follow as needed. MMODL / IJN: [id number] / MARTA
--- NOTE | 2018-03-08 11:04 | P.CRDCN ---
History of Present Illness History of present illness: This is Dr. Iverson dictating an electrophysiology consult on this patient The patient was interviewed and examined by me IMPRESSION / ASSESSMENT: Sustained ventricular tachycardia, induced with exertion Past history of recurrent episodes Likely idiopathic ventricular tachycardia, from the LV inferior wall, possibly fascicular VT 2 years back he underwent an EP study and ablation at [facility]. At that time coronary angiography was also performed and he was told that he had no significant coronary artery disease. Preserved LV size and function on 2-D echo PLAN: Obtain records from [facility] including coronary angiography report and EP study report, from [facility]. 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 No oral amiodarone Verapamil 180 mg by mouth daily long-acting Detailed discussion with the patient regarding VT ablation. Risks including cardiac puncture and stroke explained vascular injury in the groin explained. Mechanism of the tachycardia explained. I would recommend proceeding with a VT ablation. He was not been amiodarone because this will affect induciblity ventricular tachycardia I will schedule the procedure for him HPI Patient presented with sustained palpitations No chest discomfort dizziness or loss of consciousness He's had a prior episode lasting for about 4 hours with spontaneous termination He has sustained ventricular tachycardia and underwent an EP study and ablation as well as coronary angiography about 2 years back at [facility] ROS: No fever chills or rigors, no cough, phlegm or expectoration, no nausea, vomiting or diarrhea, no hematuria, dysuria, no musculoskeletal complaints, no strokes or seizures, no skin lesions. EXAMINATION: Blood pressure 108/67 mmHg respirations 16, pulse rate in the 60s Breath sounds are clear Normal heart sounds normal S1 normal S2 No rhonchi no crackles Abdomen is soft nontender No lower extremity edema No JVD REVIEW OF LABS, ECG & MEDICAL DATA Hemoglobin 13.4, lites normal renal function normal Cardiac enzymes 0.25 and 0.26. Patient had sustained ventricular tachycardia for almost 24 hours Past Medical History Past Medical History: GERD/Reflux, Supraventricular Tachycardia (SVT) History of Any Multi-Drug Resistant Organisms: None Reported Past Surgical History: Cardiac Ablation Additional Past Surgical History / Comment(s): nasal Past Psychological History: Depression Smoking Status: Former smoker Past Alcohol Use History: Rare Past Drug Use History: None Reported - Past Family History Father Family Medical History: Diabetes Mellitus Mother History Unknown: Yes Medications and Allergies Home Medications Medication Instructions Recorded Confirmed Type Amitriptyline HCl [Elavil] 150 mg PO HS 03/06/18 03/06/18 History HYDROcodone/APAP 7.5-325MG [[place] 1 tab PO Q4H PRN 03/06/18 03/06/18 History 7.5-325] Omeprazole [PriLOSEC] 20 mg PO DAILY 03/06/18 03/06/18 History clonazePAM [KlonoPIN] 0.5 mg PO HS 03/07/18 03/07/18 History Aspirin 325 mg PO DAILY tab 03/08/18 Rx Verapamil Sr [Isoptin Sr] 180 mg PO HS #30 tablet.er 03/08/18 Rx Allergies Allergy/AdvReac Type Severity Reaction Status Date / Time No Known Allergies Allergy Verified 03/06/18 17:20 Physical Exam Vitals: Vital Signs Temp Pulse Resp BP Pulse Ox 03/08/18 07:00 69 16 108/67 97 03/08/18 06:00 69 16 101/64 97 03/08/18 05:00 69 15 105/68 96 03/08/18 04:00 98.0 F 65 25 H 101/67 97 03/08/18 03:00 64 23 104/63 96 03/08/18 02:00 64 20 107/64 98 03/08/18 01:00 67 16 93/60 97 03/08/18 00:06 67 14 93/60 96 03/08/18 00:00 98.0 F 67 19 119/73 96 03/07/18 23:00 69 24 119/78 98 03/07/18 22:00 58 L 20 117/73 98 03/07/18 21:01 64 20 123/75 97 03/07/18 20:00 98.2 F 68 14 121/82 97 03/07/18 19:00 91 13 133/87 96 03/07/18 18:30 100 15 133/78 96 03/07/18 18:00 98 14 136/75 95 03/07/18 17:30 75 18 137/85 96 03/07/18 17:00 70 21 128/79 97 03/07/18 16:30 74 22 127/81 98 03/07/18 16:00 69 16 125/82 98 03/07/18 15:30 67 10 L 126/83 99 03/07/18 15:00 98.2 F 68 10 L 117/94 98 03/07/18 14:30 66 20 118/82 98 03/07/18 14:00 64 25 H 120/77 03/07/18 13:30 64 21 116/78 95 03/07/18 13:00 63 10 L 127/85 93 L 03/07/18 12:30 64 4 L 115/84 96 03/07/18 12:00 98.6 F 64 12 118/78 93 L 03/07/18 11:30 62 17 125/87 97 Intake and Output 03/07/18 03/08/18 03/08/18 22:59 06:59 14:59 Intake Total 1871.023 900 218 Output Total 550 1300 650 Balance 1321.023 -400 -432 Intake: IV 800 900 100 Magnesium Sulfate-D5w Pmx 100 100 1 gm In Dextrose/Water 1 100ml.bag @ 100 mls/hr IVPB Q1H [facility] Rx#: [id number] Sodium Chloride 0.9% 1, 800 800 000 ml @ 100 mls/hr IV . Q10H [facility] Rx#:[id number] Intake, IV Titration 221.023 Amount Amiodarone 450 mg In 221.023 Dextrose 5% in Water 250 ml @ 0.5 MG/MIN 16.66 mls /hr IV .Q15H1M [facility] Rx#: [id number] Oral 850 118 Output: Urine 550 1300 650 Other: Weight 96 kg Results 03/08/18 04:21 03/08/18 04:21 CBC 03/08/18 Range/Units 04:21 WBC 10.8 H (3.8-10.6) k/uL RBC 4.28 L (4.30-5.90) m/uL Hgb 13.4 (13.0-17.5) gm/dL Hct 39.9 (39.0-53.0) % Plt Count 203 (150-450) k/uL Comprehensive Metabolic Panel 03/08/18 Range/Units 04:21 Sodium 138 (137-145) mmol/L Potassium 4.1 (3.5-5.1) mmol/L Chloride 111 H (98-107) mmol/L Carbon Dioxide 22 (22-30) mmol/L BUN 13 (9-20) mg/dL Creatinine 0.69 (0.66-1.25) mg/dL Glucose 103 H (74-99) mg/dL Calcium 8.2 L (8.4-10.2) mg/dL Current Medications Generic Name Dose Route Start Last Admin Trade Name Freq PRN Reason Stop Dose Admin Hydrocodone Bitart/Acetaminophen 1 each 03/07/18 10:31 03/08/18 08:02 [place] 7.5-325 PO 1 each Q4H PRN Administration Moderate Pain Amitriptyline HCl 150 mg 03/07/18 21:00 03/07/18 21:17 Elavil PO 150 mg HS [facility]I Administration Aspirin 325 mg 03/07/18 09:00 03/08/18 08:02 Aspirin PO 325 mg DAILY S[facility]I Administration Clonazepam 0.5 mg 03/07/18 21:00 03/07/18 21:17 Klonopin PO 0.5 mg HS S[facility]I Administration Enoxaparin Sodium 40 mg 03/07/18 09:00 03/07/18 08:56 Lovenox SQ 40 mg DAILY S[facility]I Administration Famotidine 20 mg 03/07/18 09:00 03/08/18 08:01 Pepcid PO 20 mg BID S[facility]I Administration Miscellaneous Information 1 each 03/08/18 05:07 Magnesium Per Protocol MISCELLANE DAILY PRN Per Protocol Protocol Nitroglycerin 0.4 mg 03/06/18 20:20 Nitrostat SUBLINGUAL Q5M PRN Chest Pain Verapamil HCl 180 mg 03/07/18 21:00 03/07/18 21:17 Isoptin Sr PO 180 mg HS S[facility]I Administration Intake and Output 03/07/18 03/08/18 03/08/18 22:59 06:59 14:59 Intake Total 1871.023 900 218 Output Total 550 1300 650 Balance 1321.023 -400 -432 Intake: IV 800 900 100 Magnesium Sulfate-D5w Pmx 100 100 1 gm In Dextrose/Water 1 100ml.bag @ 100 mls/hr IVPB Q1H [facility] Rx#: [id number] Sodium Chloride 0.9% 1, 800 800 000 ml @ 100 mls/hr IV . Q10H [facility] Rx#:[id number] Intake, IV Titration 221.023 Amount Amiodarone 450 mg In 221.023 Dextrose 5% in Water 250 ml @ 0.5 MG/MIN 16.66 mls /hr IV .Q15H1M [facility] Rx#: [id number] Oral 850 118 Output: Urine 550 1300 650 Other: Weight 96 kg 03/08/18 04:21 03/08/18 04:21
--- NOTE | 2018-03-08 12:18 | P.DS ---
Providers Date of admission: 03/06/18 20:21 Expected date of discharge: 03/08/18 Attending physician: Gage Fernandez Consults: 03/06/18 20:20 Consult Physician Urgent Consulting Provider: Jeovany Loera Consult Reason/Comments: svt Do you want consulting provider notified?: Yes 03/06/18 20:45 Consult Physician Urgent Consulting Provider: Fernando Oconnell Consult Reason/Comments: arrhythmia Do you want consulting provider notified?: Yes 03/07/18 08:29 Consult Physician Urgent Consulting Provider: Patricio Iverson Consult Reason/Comments: SVT Do you want consulting provider notified?: Already Contacted Primary care physician: Maribel Goel [facility] Course: 53-year-old male 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 Patient ended up coming to the emergency department pulse rate remain are bound 100 5260 bpm initially was started on Cardizem drip not successful cardiology were contacted and end up having him start on amiodarone at that point patient was sent to the intensive care unit and Dr. Iverosn was notify on his admission. 03/08: Echocardiogram reveals EF greater than 55%, mild mitral regurgitation, mild tricuspid regurgitation, no pulmonary hypertension. Patient's rhythm converted to sinus rhythm while he was on amiodarone. Dr. vIerson is started him on verapamil with no plan for amiodarone at home. Plan is for V. tach ablation in the near future. Patient has remained in sinus rhythm and has been hemodynamically stable. He has been cleared for discharge by cardiology, Dr. Iverson and corsetier. Patient will be discharged home today in stable condition. Discharge diagnoses: 1 idiopathic ventricular tachycardia, possibly fascicular V. tach 2 chest pain and mildly elevated troponin secondary to V. tach 3 severe GERD 4 jaw pain secondary to dental problems 5 recurrent depression. The Discharge plan: Home Impression and plan of care have been directed as dictated by the signing physician. Maria M Echeverria nurse practitioner acting as scribe for signing physician. Patient Condition at Discharge: Good Plan - Discharge Summary Discharge Rx Participant: Yes New Discharge Prescriptions: New Aspirin 325 mg PO DAILY tab Verapamil Sr [Isoptin Sr] 180 mg PO HS #30 tablet.er Continue HYDROcodone/APAP 7.5-325MG [[place] 7.5-325] 1 tab PO Q4H PRN PRN Reason: Pain Amitriptyline HCl [Elavil] 150 mg PO HS Omeprazole [PriLOSEC] 20 mg PO DAILY clonazePAM [KlonoPIN] 0.5 mg PO HS Discontinued Metoprolol Tartrate [Lopressor] 25 mg PO BID Discharge Medication List Amitriptyline HCl [Elavil] 150 mg PO HS 03/06/18 [History] HYDROcodone/APAP 7.5-325MG [[place] 7.5-325] 1 tab PO Q4H PRN 03/06/18 [History] Omeprazole [PriLOSEC] 20 mg PO DAILY 03/06/18 [History] clonazePAM [KlonoPIN] 0.5 mg PO HS 03/07/18 [History] Aspirin 325 mg PO DAILY tab 03/08/18 [Rx] Verapamil Sr [Isoptin Sr] 180 mg PO HS #30 tablet.er 03/08/18 [Rx] Follow up Appointment(s)/Referral(s): [facility] [Provider Group] - 1 Week Maribel Goel DO [Primary Care Provider] - 1 Week Activity/Diet/Wound Care/Special Instructions: Pt would like DC RX at discharge. Discharge Disposition: HOME SELF-CARE
[2018-03-08] MEDS ORDERED: DEXTROSE 5% IN WATER 100 ML with AMIODARONE 150 MG IV ONE (14:15)
[2018-03-08] MEDS: AMIODARONE 450 MG in DEXTROSE 5% IN WATER 250 ML IV SCH ×4 (14:21→23:21)
[2018-03-08] MEDS ORDERED: VERAPAMIL 2.5 MG/ML 2 ML AMP IVP STA (15:43)
[2018-03-08] MEDS: VERAPAMIL SR 180 MG TABLET.ER PO SCH (19:46)
[2018-03-08] MEDS: clonazePAM 0.5 MG TAB PO SCH (20:50)
[2018-03-08] MEDS: AMITRIPTYLINE HCL 50 MG TAB PO SCH (20:50)
[2018-03-09 04:52] LABS: Basophils # (A) 0.1 k/uL (0-0.2); Basophils % (A) 0 %; Eosinophils # (A) 0.7 k/uL (0-0.7); Eosinophils % (A) 5 %; HCT 45.8 % (39.0-53.0); HGB 14.9 gm/dL (13.0-17.5); Lymphocytes # (A) 2.1 k/uL (1.0-4.8); Lymphocytes % (A) 16 %; MCH 29.6 pg (25.0-35.0); MCHC 32.4 g/dL (31.0-37.0); MCV 91.2 fL (80.0-100.0); Mean Platelet Volume 6.9; Monocytes # (A) 0.7 k/uL (0-1.0); Monocytes % (A) 5 %; Neutrophils # (A) 9.1 k/uL (1.3-7.7); Neutrophils % (A) 71 %; Platelet Count 219 k/uL (150-450); RBC 5.03 m/uL (4.30-5.90); RDW 13.2 % (11.5-15.5); WBC 12.8 k/uL (3.8-10.6)
[2018-03-09 05:21] LABS: Potassium 4.1 mmol/L (3.5-5.1)
[2018-03-09 05:22] LABS: Anion Gap 8 mmol/L; Blood Urea Nitrogen 11 mg/dL (9-20); Calcium 8.8 mg/dL (8.4-10.2); Carbon Dioxide 25 mmol/L (22-30); Chloride 104 mmol/L (98-107); Glucose 138 mg/dL (74-99); Magnesium 1.8 mg/dL (1.6-2.3); Phosphorus 3.5 mg/dL (2.5-4.5); Sodium 137 mmol/L (137-145)
[2018-03-09] MEDS: MAGNESIUM SULFATE-D5W PMX 1 GM in DEXTROSE/WATER 1 100ML.BAG IVPB SCH ×2 (06:41→09:12)
--- NOTE | 2018-03-09 06:59 | P.PN ---
Subjective Progress Note Date: 03/09/18 Principal diagnosis: Sustained ventricular tachycardia This is a pleasant 53-year-old gentleman with a past medical history significant for history of ventricular tachycardia who follows with a laboratory associate in [facility] was brought to the emergency room complaining of heart racing. The patient was in his usual state of health yesterday when he was trying to help shoveling the snow outside and suddenly he felt his heart started racing. No symptoms of dizziness or lightheadedness. No syncope. No chest pain or chest discomfort. He just felt weak. Ambulance was called and the patient was found to be in wide complex tachycardia with RBBB morphology. He was given 6 and then 12 mg of adenosine without any success. Subsequently he underwent synchronized cardioversion which was also unsuccessful. The patient was started on amiodarone IV and was brought to the emergency room. The patient stated that about a year and a half ago he was diagnosed with ventricular tachycardia and he underwent an EP study and attempted ablation which was unsuccessful. At that point he was placed on metoprolol by mouth. He was discharged in stable medical condition. He stated that he was taking his medications on a regular basis. I did review the EKGs during this admission and it did show wide complex tachycardia with RBBB morphology. No discrete atrial wave seen. The echo showed normal LV function. On follow-up with the patient today, 03/09/2018, after he was converted to normal sinus mechanism he went into ventricular tachycardia last night. I did start the patient on amiodarone IV. I continued the verapamil. He is currently nothing by mouth for possible EP study and possible ablation to be done later on today by Dr. Iverson. Objective - Vital Signs Vital signs: Vital Signs Temp 98.0 F 03/09/18 04:00 Pulse 89 03/09/18 06:00 Resp 20 03/09/18 06:00 BP 127/77 03/09/18 06:00 Pulse Ox 95 03/09/18 06:00 Intake & Output 03/08/18 03/08/18 03/09/18 06:59 18:59 06:59 Intake Total 1621.023 258 949 Output Total 1600 1950 1100 Balance 21.023 -1692 -151 Weight 96 kg 67.6 kg Intake: IV 1300 140 640 0.9 40 640 Magnesium Sulfate-D5w Pmx 100 100 1 gm In Dextrose/Water 1 100ml.bag @ 100 mls/hr IVPB Q1H [facility] Rx#: [id number] Sodium Chloride 0.9% 1, 1200 000 ml @ 100 mls/hr IV . Q10H [facility] Rx#:[id number] Intake, IV Titration 221.023 259 Amount Amiodarone 450 mg In 221.023 Dextrose 5% in Water 250 ml @ 0.5 MG/MIN 16.66 mls /hr IV .Q15H1M [facility] Rx#: [id number] Amiodarone 450 mg In 259 Dextrose 5% in Water 250 ml @ 1 MG/MIN 34.53 mls/ hr IV .Q7H31M [facility] Rx#: [id number] Oral 100 118 50 Output: Urine 1600 1950 1100 - Constitutional General appearance: Present: no acute distress - Respiratory Respiratory: bilateral: CTA - Cardiovascular Rhythm: regular Heart sounds: normal: S1, S2 - Labs CBC & Chem 7: 03/09/18 04:26 03/09/18 04:49 Labs: Abnormal Lab Results - Last 24 Hours (Table) 03/09/18 03/09/18 Range/Units 04:26 04:49 WBC 12.8 H (3.8-10.6) k/uL Neutrophils # 9.1 H (1.3-7.7) k/uL Glucose 138 H (74-99) mg/dL Assessment and Plan Assessment: Assessment #1 ventricular tachycardia of RBBB morphology. Plan #1 continue the current medical regimen. Continue amiodarone IV and verapamil by mouth #2 the patient is nothing by mouth for possible ablation to be done later on today.
--- NOTE | 2018-03-09 08:08 | PN ---
PROGRESS NOTE DATE OF SERVICE: March 09, 2018 A 53-year-old male admitted on the 06 of March and transferred to the ICU from the ER. He developed SVT. He was apparently shoveling snow when he felt his heart start to race. EMS apparently tried to cardiovert him, that was unsuccessful. Subsequently, he received adenosine x3 doses. He also received a beta richard and Cardizem. None that seem to help very much at all. Hence, the patient was admitted to the ICU. The patient was placed on amiodarone. Yesterday he was doing well and he had been off all medications for his heart other than the chronic things he takes orally. Right around 1:00 yesterday he developed the SVT again. The patient was placed back on amiodarone drip 0.5 mg/minute. He is not receiving any supplemental oxygen. He is getting a saline IV at 20 mL an hour. Apparently there will be attempt for cardioversion today. It will be done here. Current vital signs are reviewed. Temperature is 98. Heart rate 88. Respiratory rate 20. Blood pressure 127/77, mean 93, saturations on room air are 95%. Appears in no acute distress. HEENT examination is grossly unremarkable. Mucous membranes are moist. NECK: Supple. Full range of motion. No adenopathy or thyromegaly. Neck veins are flat. Cardiovascular examination reveals regular rhythm and rate. Heart rate 88. Lungs reveal relatively clear breath sounds. No wheezes or rhonchi. Abdomen is soft. Bowel sounds are heard. There is no masses or tenderness. Extremities are intact. No cyanosis, clubbing, or edema. Skin without rash. Neurologic examination is brief but nonfocal. White count 12.8, hemoglobin 14.9, hematocrit 45.8, platelet count normal. Sodium, potassium, chloride, CO2, anion gap, BUN, creatinine all normal. UA is negative. His TSH was normal. No recent x-ray to report. Microbiologic studies are negative. ASSESSMENT: 1. Acute paroxysmal supraventricular tachycardia in a patient with a known history of supraventricular tachycardia, recurrent. 2. Gastroesophageal reflux disease. 3. Previous history of tobacco use. 4. History of depression. 5. Previous history of ablations, which were unsuccessful. 6. Chest pain and a mild elevation of troponin, likely related to supply/demand mismatch. PLAN: The patient apparently will have an attempted ablation here. It will be done by Dr. Iverson. I did speak to Dr. Nicolas about the patient. The patient is otherwise stable. Hemodynamics are stable. Respiratory status is stable. He is not requiring any oxygen therapy. He remains on amiodarone at 0.5 mg/minute. We will continue to follow. Prognosis is guarded. MMODL / IJN: [id number] /
--- NOTE | 2018-03-09 08:15 | P.PN ---
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 with history of arrhythmia claimed to be SVT versus ventricular tachycardia was hospitalized last time in [facility] 2 years ago for an episode of severe tachycardia with rapid ventricular spine was placed on amiodarone at the time without anticoagulation had attempt ablation therapy not successful was placed on metoprolol and taking off amiodarone for the last 2 years and been doing well. 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 Patient ended up coming to the emergency department pulse rate remain are bound 100 5260 bpm initially was started on Cardizem drip not successful cardiology were contacted and end up having him start on amiodarone at that point patient was sent to the intensive care unit and Dr. Iverson was notify on his admission. 03/08: Echocardiogram reveals EF greater than 55%, mild mitral regurgitation, mild tricuspid regurgitation, no pulmonary hypertension. Patient's rhythm converted to sinus rhythm while he was on amiodarone. Dr. Iverson is started him on verapamil with no plan for amiodarone at home. Plan is for V. tach ablation in the near future. Patient has remained in sinus rhythm and has been hemodynamically stable. 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 Patient will be discharged home today in stable condition. After patient ambulated in the hallway he went into a wide QRS tachycardia and discharge was canceled. Patient was continued on amiodarone drip and verapamil was ordered at bedtime. Review Of Systems: Constitutional: No fever, no chills, no night sweats. No weight change. No weakness, fatigue or lethargy. No daytime sleepiness. EENT: No headache. No blurred vision or double vision, no loss of vision. No loss of Hearing, no ringing in the ears, no dizziness. No nasal drainage or congestion. No epistaxis. No sore throat. Lungs: No shortness of breath, cough, no sputum production. No wheezing. Cardiovascular: No chest pain, no lower extremity edema. No palpitations. No paroxysmal nocturnal dyspnea. No orthopnea. No lightheadedness or dizziness. No syncopal episodes. Abdominal: No abdominal pain. No nausea, vomiting. No diarrhea. No constipation. No bloody or tarry stools.. No loss of appetite. Genitourinary: No dysuria, increased frequency, urgency. No urinary retention. Musculoskeletal: No myalgias. No muscle weakness, no gait dysfunction, no frequent falls. No back pain. No neck pain. Integumentary: No wounds, no lesions. No rash or pruritus. No unusual bruising. No change in hair or nails. Neurologic: No aphasia. No facial droop. No change in mentation. No head injury. No headache. No paralysis. No paresthesia. Psychiatric: No depression. No anxiety. No mood swings. Endocrine: No abnormal blood sugars. No weight change. No excessive sweating or thirst. Objective - Vital Signs Vital signs: Vital Signs Temp 98.0 F 03/09/18 08:00 Pulse 141 H 03/09/18 08:00 Resp 18 03/09/18 08:00 BP 109/68 03/09/18 08:00 Pulse Ox 92 L 03/09/18 08:00 Intake & Output 03/08/18 03/09/18 03/09/18 18:59 06:59 18:59 Intake Total 258 949 20 Output Total 1950 1100 0 Balance -1692 -151 20 Weight 67.6 kg Intake: IV 140 640 20 0.9 40 640 20 Magnesium Sulfate-D5w Pmx 100 1 gm In Dextrose/Water 1 100ml.bag @ 100 mls/hr IVPB Q1H [facility] Rx#: [id number] Intake, IV Titration 259 Amount Amiodarone 450 mg In 259 Dextrose 5% in Water 250 ml @ 1 MG/MIN 34.53 mls/ hr IV .Q7H31M [facility] Rx#: [id number] Oral 118 50 Output: Urine 1950 1100 0 - Exam General Appearance: Alert, cooperative, no distress, appears stated age. Neck HEENT: Supple, no lymphadenopathy, no thyroid enlargement, no carotid bruits. Lungs: Clear to auscultation without crackles or wheezes no rhonchi, no deformity. Chest Wall: Chest wall normal expansion with deep inspiration no tenderness and no deformity was found on exam, no costochondral pain or discomfort. Heart: Irregular rhythm and rate S1-S2 positive street positive tachycardia with pulse rate running 100 4250 beats per minutes. Back: Symmetric, no curvature, ROM normal, no CVA tenderness. Abdomen: Soft, non-tender, bowel sounds active all four quadrants, no masses, no organomegaly. Extremities: Extremities normal, atraumatic, no cyanosis or edema. Pulses: 2+ and symmetric. Skin: Skin color, texture, tugor normal, no rashes or lesions. Neurologic: Alert oriented x3 cranial nerves II through XII intact, no motor deficit, no abnormal balance or gait. - Labs CBC & Chem 7: 03/09/18 04:26 03/09/18 04:49 Labs: Abnormal Lab Results - Last 24 Hours (Table) 03/09/18 03/09/18 Range/Units 04:26 04:49 WBC 12.8 H (3.8-10.6) k/uL Neutrophils # 9.1 H (1.3-7.7) k/uL Glucose 138 H (74-99) mg/dL Assessment and Plan Plan: 1 ventricular tachycardia: Continue amiodarone drip currently was seen cardiology, will be seen electrophysiology verapamil started. Patient might need cardioversion and eventually probably need to go for ablation therapy. 2 chest pain and mildly elevated troponin: Not a clear whether this is non-ST MA according to patient had completely negative heart cath 2 years ago when he had first episode echocardiogram and further management by cardiology to follow. 3 severe GERD: Has been on omeprazole which will be continued for now. 4 jaw pain: Post with cannot recently with his dentist is supposed to go for further workup on it I can feel or see any abscess patient will be on smaller dose of hydrocodone for pain. 5 chronic depression: Has been on Elavil continue medication still on smaller dose of clonazepam for insomnia as well. 6 GI prophylaxis: Patient is on omeprazole. 7 DVT prophylaxis: Continue anticoagulation for now. CODE STATUS: Full code. Discharge plan: Home Impression and plan of care have been directed as dictated by the signing physician. Maria M Echeverria nurse practitioner acting as scribe for signing physician.
[2018-03-09] MEDS: ASPIRIN 325 MG TAB PO SCH (09:07)
[2018-03-09] MEDS: FAMOTIDINE 20 MG TAB PO SCH ×2 (09:07→21:19)
[2018-03-09] MEDS: AMIODARONE 450 MG in DEXTROSE 5% IN WATER 250 ML IV SCH ×2 (09:15)
[2018-03-09] MEDS: ENOXAPARIN 40 MG/0.4 ML SYRINGE SQ SCH (09:15)
--- NOTE | 2018-03-09 11:48 | P.PN ---
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 Patient ended up coming to the emergency department pulse rate remain are bound 100 5260 bpm initially was started on Cardizem drip not successful cardiology were contacted and end up having him start on amiodarone at that point patient was sent to the intensive care unit and Dr. Iverson was notify on his admission. 03/08: Echocardiogram reveals EF greater than 55%, mild mitral regurgitation, mild tricuspid regurgitation, no pulmonary hypertension. Patient's rhythm converted to sinus rhythm while he was on amiodarone. Dr. Iverson is started him on verapamil with no plan for amiodarone at home. Plan is for V. tach ablation in the near future. Patient has remained in sinus rhythm and has been hemodynamically stable. He has been cleared for discharge by cardiology, Dr. Iverson and account management specialist. Patient will be discharged home today in stable condition. After patient ambulated in the hallway he went into a wide QRS tachycardia and discharge was canceled. Patient was continued on amiodarone drip and verapamil was ordered at bedtime. 03/09: Patient is continued on amiodarone IV which was discontinued this morning but heart rate is still running in the 140s. Magnesium has been replaced. Patient is scheduled for EP study and ablation with Dr. Iverson today. Patient denies having any chest pain or shortness of breath, lightheadedness or dizziness. Blood pressure is 102/73. Pulse ox 94% on room air. Review Of Systems: Constitutional: No fever, no chills, no night sweats. No weight change. No weakness, fatigue or lethargy. No daytime sleepiness. EENT: No headache. No blurred vision or double vision, no loss of vision. No loss of Hearing, no ringing in the ears, no dizziness. No nasal drainage or congestion. No epistaxis. No sore throat. Lungs: No shortness of breath, cough, no sputum production. No wheezing. Cardiovascular: No chest pain, no lower extremity edema. No palpitations. Irregular heartbeat No paroxysmal nocturnal dyspnea. No orthopnea. No lightheadedness or dizziness. No syncopal episodes. Abdominal: No abdominal pain. No nausea, vomiting. No diarrhea. No constipation. No bloody or tarry stools.. No loss of appetite. Genitourinary: No dysuria, increased frequency, urgency. No urinary retention. Musculoskeletal: No myalgias. No muscle weakness, no gait dysfunction, no frequent falls. No back pain. No neck pain. Integumentary: No wounds, no lesions. No rash or pruritus. No unusual bruising. No change in hair or nails. Neurologic: No aphasia. No facial droop. No change in mentation. No head injury. No headache. No paralysis. No paresthesia. Psychiatric: No depression. No anxiety. No mood swings. Endocrine: No abnormal blood sugars. No weight change. No excessive sweating or thirst. Objective - Vital Signs Vital signs: Vital Signs Temp 98.0 F 03/09/18 08:00 Pulse 141 H 03/09/18 08:00 Resp 18 03/09/18 08:00 BP 109/68 03/09/18 08:00 Pulse Ox 92 L 03/09/18 08:00 Intake & Output 03/08/18 03/09/18 03/09/18 18:59 06:59 18:59 Intake Total 258 949 20 Output Total 1950 1100 0 Balance -1692 -151 20 Weight 67.6 kg Intake: IV 140 640 20 0.9 40 640 20 Magnesium Sulfate-D5w Pmx 100 1 gm In Dextrose/Water 1 100ml.bag @ 100 mls/hr IVPB Q1H [facility] Rx#: [id number] Intake, IV Titration 259 Amount Amiodarone 450 mg In 259 Dextrose 5% in Water 250 ml @ 1 MG/MIN 34.53 mls/ hr IV .Q7H31M [facility] Rx#: [id number] Oral 118 50 Output: Urine 1950 1100 0 - Exam General Appearance: Alert, cooperative, no distress, appears stated age. Patient is resting in ICU bed. Patient's is at the bedside. Neck HEENT: Supple, no lymphadenopathy, no thyroid enlargement, no carotid bruits. Lungs: Clear to auscultation without crackles or wheezes no rhonchi, no deformity. Chest Wall: Chest wall normal expansion with deep inspiration no tenderness and no deformity was found on exam, no costochondral pain or discomfort. Heart: Irregular rhythm and rate S1-S2 positive street positive tachycardia with pulse rate running 100 4250 beats per minutes. Back: Symmetric, no curvature, ROM normal, no CVA tenderness. Abdomen: Soft, non-tender, bowel sounds active all four quadrants, no masses, no organomegaly. Extremities: Extremities normal, atraumatic, no cyanosis or edema. Pulses: 2+ and symmetric. Skin: Skin color, texture, tugor normal, no rashes or lesions. Neurologic: Alert oriented x3 cranial nerves II through XII intact, no motor deficit, no abnormal balance or gait. - Labs CBC & Chem 7: 03/09/18 04:26 03/09/18 04:49 Labs: Abnormal Lab Results - Last 24 Hours (Table) 03/09/18 03/09/18 Range/Units 04:26 04:49 WBC 12.8 H (3.8-10.6) k/uL Neutrophils # 9.1 H (1.3-7.7) k/uL Glucose 138 H (74-99) mg/dL Assessment and Plan Plan: 1 ventricular tachycardia: Amiodarone drip discontinued, continue oral verapamil , EP study today with Dr. Iverson. 2 chest pain and mildly elevated troponin: Not a clear whether this is non-ST HI according to patient had completely negative heart cath 2 years ago when he had first episode echocardiogram and further management by cardiology to follow. 3 severe GERD: Has been on omeprazole which will be continued for now. 4 jaw pain: Post with cannot recently with his dentist is supposed to go for further workup on it I can feel or see any abscess patient will be on smaller dose of hydrocodone for pain. 5 chronic depression: Has been on Elavil continue medication still on smaller dose of clonazepam for insomnia as well. 6 GI prophylaxis: Patient is on omeprazole. 7 DVT prophylaxis: Continue anticoagulation for now. CODE STATUS: Full code. Discharge plan: Home Impression and plan of care have been directed as dictated by the signing physician. Maria M Echeverria nurse practitioner acting as scribe for signing physician.
--- NOTE | 2018-03-09 14:07 | P.PN ---
Progress Note - Text Patient has had recurrent ventricular tachycardia despite IV amiodarone and oral long-acting verapamil stained I discussed this with the patient and his I called the on the phone I would recommend proceeding with a VT ablation today Benefits and risks discussed Risks including cardiac puncture admitted for open heart surgery stroke gumption electrical circuitry discussed Plan Stop IV amiodarone Hold verapamil Proceed with VT ablation today
[2018-03-09] MEDS ORDERED: IV FLUID CONTINUATION 1,000 ML IV ONE (14:09)
[2018-03-09] MEDS ORDERED: MIDAZOLAM 2 MG/2 ML VIAL ONE (14:12)
[2018-03-09] MEDS ORDERED: HYDROmorphone (PF) 1 MG/ML ONE (14:12)
[2018-03-09] MEDS ORDERED: PROTAMINE SULFATE 10 MG/ML 5 ML VIAL IV ONE (14:12)
[2018-03-09] MEDS ORDERED: PROPOFOL 10 MG/ML 20 ML VIAL IV ONE (14:12)
[2018-03-09] MEDS ORDERED: HEPARIN SODIUM,PORCINE 5,000 UNIT/ML 1 ML VIAL ONE (14:12)
[2018-03-09] MEDS ORDERED: fentaNYL (PF) 50 MCG/ML 2 ML AMP ONE (14:12)
[2018-03-09] MEDS ORDERED: HEPARIN SODIUM,PORCINE 10,000 UNIT/ML 1 ML VIAL ONE (14:12)
[2018-03-09] MEDS ORDERED: ISOPROTERENOL 250 MCG/1.25 ML SYR IV ONE (14:12)
[2018-03-09] MEDS ORDERED: LIDOCAINE 1% INJ 10MG/ML (20 ML MDV) ONE ×2 (14:28→19:00)
[2018-03-09] MEDS ORDERED: LIDOCAINE 1% INJ 10MG/ML (20 ML MDV) SQ ONE ×2 (15:02→19:00)
[2018-03-09] MEDS ORDERED: DOPamine DRIP 800 MG in DEXTROSE/WATER 1 500ML.BAG IV ONE (18:45)
[2018-03-09] MEDS ORDERED: SODIUM CHLORIDE 0.9% 1,000 ML IV ONE (19:30)
[2018-03-09] MEDS ORDERED: LACTATED RINGERS 1,000 ML IV ONE (19:30)
[2018-03-09] MEDS ORDERED: ACETAMINOPHEN TAB 325 MG TAB PO PRN (20:09)
[2018-03-09] MEDS ORDERED: ACETAMINOPHEN IV (For NPO) 1,000 MG in EMPTY BAG 1 BAG IVPB ONE (20:09)
--- NOTE | 2018-03-09 20:09 | P.PCN ---
Preoperative Diagnosis: Patient underwent mapping and ablation for ventricular tachycardia, left ventricular VT A detailed electro-anatomic mapping was performed in sinus rhythm as well as in mental atrial tachycardia Intracardiac echocardiography was performed the aortic root, left ventricular outflow tract inferior wall of left ventricle along with the Pap the muscle was identified and mapped In sinus rhythm The His bundle was tagged carefully Left posterior fascicle and the left anterior fascicle were tagged carefully Purkinje potentials at the end of the left posterior fascicle were tagged VT was initiated with atrial extra stimulation, fascicular VT It was more easily inducible on Isuprel with single and double atrial extra stimuli 2 activation maps were made First 3-D electro-anatomic activation map was made in electrical systole with identification the exit of the circuit A second 3-D electro-anatomic map, activation map was made using the diastolic potentials and carefully mapping the early potentials, weight potentials and late potentials in the micro-circuit in ablation to the area around the left posterior fascicle Left bundle branch block occurred during mapping with catheter bumping the left bundle However the tachycardia was easily inducible The exit of the circuit was in the mid left ventricle The entrance of the circuit was carefully identified about 8 mm away from the distal HIS bundle RF ablation was performed in the mid circuit and the proximal circuit a contact force between 5 and 10 g was achieved and power of 30 W was used Despite ablation of the proximal portion of the different circuit, midportion of the different circuit as well as the exit, tachycardia continued to be inducible Therefore repeat mapping was performed and while the catheter was being manipulated, catheter manipulation in the region of the distal His bundle resultant in transient complete heart block with resumption of conduction in a 2 -1 fashion. This also resulted in termination of ventricular tachycardia At the point where this mechanical bumping of the distal His bundle occurred, was carefully identified and localized with 3-D mapping. This site was within millimeters of the entrance to his ventricular tachycardia circuit This was the site that was previously carefully chosen and ablation was avoided at this site because of risk of heart block Mechanical bumping during catheter manipulation resulted in termination of ventricular tachycardia as well as transient complete heart block confirming that our diastolic potential mapping technique accurately identified the Micro- circuit of this fascicular VT Plan plan circuit Therefore to perform successful VT circuit ablation, complete heart block will necessarily result. Therefore ablation was not performed at this site
[2018-03-09] MEDS: HYDROmorphone 1 MG/ML 1 ML SYRINGE IVP PRN (21:08)
[2018-03-09] MEDS: ONDANSETRON 4 MG/2 ML VIAL IVP PRN (21:08)
[2018-03-09] MEDS: clonazePAM 0.5 MG TAB PO SCH (21:10)
[2018-03-09] MEDS: AMITRIPTYLINE HCL 50 MG TAB PO SCH (21:10)
--- NOTE | 2018-03-09 21:11 | PCN ---
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 He was brought in for an EP study and ablation. The procedure was performed under conscious sedation. Patient was brought to the EP lab in a fasting state. Written informed consent was obtained prior to the procedure. The right and left groins were prepped and draped as per protocol. A long 8-Palauan sheath was placed in the right femoral artery. Two venous sheaths were placed in the right femoral vein, one venous sheath in the left femoral vein. Diagnostic catheters were placed in the high right atrium, His bundle and right ventricle as well as in the left ventricle. Intracardiac echo catheter was placed. The patient was back in sinus rhythm at the start of the study. Three- dimensional electroanatomic mapping. Intracardiac echocardiography was performed. The left ventricle was identified. The mitral anulus was identified. Papillary muscles in inferior wall were carefully identified. A mapping ablation catheter was placed in the left ventricle via the retrograde route. IV heparin was used. The aortic root and the LVOT were mapped. The His bundle was carefully tagged. The left posterior fascicle and the left anterior fascicle were tagged carefully. The Purkinje potential in relation to the left posterior fascicle was carefully tacked. This VT appeared to be fascicular VT in the inferior wall in relation to the left posterior fascicle of Purkinje network. Once the electrical circuitry in the Purkinje network of the left posterior fascicle was tagged and identified, an EP study was performed. With atrial extrastimulation on Isuprel, VT was easily inducible with single and double extrastimuli consistent with reentrant circuit, Belhassen's VT. Electroanatomic activation mapping was performed in electrical systole to identify the exit of this site. At the point of exit, Purkinje potentials were noted during VT. A second 3D electroanatomic activation map was performed, mapping the diastolic potentials. The entrance, mid and the distal end of the circuit was identified and was correlated with the exit of the VT. This was a large circuit involving the proximal LV to the mid LV. With detailed diastolic potential mapping, especially early diastolic potential and mid diastolic potential mapping, it was evident that there was a circuit just beyond the His bundle area. The most proximal part of the circuit, which was thought to be the entrance of the circuit based upon the diastolic potential mapping, was about 8 mm away from the distal . RF ablation was applied in the mid portion of this isthmus and then in the proximal portion of this circuit. During the mapping procedure, the left bundle branch block based on mechanical bumping was evident. However, this did not occur during ablation. RF ablation was applied in the proximal and the mid portions, and then subsequently even the exit portion of the VT was ablated, though the tachycardia was still inducible. Therefore at this point the re-mapping was once again performed to re-identify any other parts of the circuit that were hitherto yet unidentified. During this mapping, as the catheter grazed the distal portion of the His bundle on the low septum, termination of ventricular tachycardia occurred along with development of complete heart block. Please note that this was during catheter manipulation and not during radiofrequency ablation. Pacing was performed, and within a few minutes the heart block improved to 2:1 conduction with an underlying left bundle branch block pattern. At this point, no further mapping ablation was performed. One catheter was replaced for transvenous temporary pacing. We had a detailed discussion with the patient's . The entire 3D map that was constructed was shown to her. The micro circuit were shown to her, and its very close relationship to the distal His bundle was noted. This distance was 8 mm. Therefore we mapped fascicular VT with diastolic activation mapping to identify the entrance in the mid portions of the circuit. Despite ablation of the mid portion and the entrance of this circuit as well as the exit of the circuit, VT was still inducible, and as the catheter was withdrawn a little more proximal, closer to the distal His bundle, VT terminated abruptly alongside development of complete heart block transiently. The heart block improved. Hence this is a circuit that is very close to the patient's cardiac electrical system on the left side, namely the very distal His bundle, and further ablations at this site will result in permanent heart block and would necessitate permanent pacing. On the other hand, the patient has failed a previous ablation at [place], has had amiodarone, beta blockers and verapamil all tested and failed. He does not want to take amiodarone for obvious reasons related to the long-term risks of amiodarone, but even that has not been successful in suppressing his tachycardia. Therefore [id number] strategy may have to be considered. The patient's sinus cycle length was 720 milliseconds at the start of the study, NM interval 157 milliseconds, QRS 106 milliseconds, narrow, QT interval 360 milliseconds. AH interval 88 milliseconds, HV interval 41 milliseconds. Pacing was performed from the left ventricle as well as from the high right atrium. Pacing was also performed from the right ventricle. Isuprel was used. MMJHON / SAAD: [id number] /
[2018-03-09] MEDS ORDERED: SODIUM CHLORIDE 0.9% 500 ML 500 ML IV ONE (21:13)
[2018-03-09] MEDS: HYDROcodone/APAP 5-325MG 1 EACH TAB PO PRN (22:43)
[2018-03-09] MEDS ORDERED: DOPamine DRIP 800 MG in DEXTROSE/WATER 1 500ML.BAG IV SCH (23:45)
[2018-03-10] MEDS ORDERED: ceFAZolin IN SWFI 2 GM/20 ML SYRINGE IVP SCH
[2018-03-10] MEDS: ceFAZolin 1,000 MG in DEXTROSE/WATER 1 50ML.BAG IVPB SCH ×4 (00:37→23:11)
[2018-03-10] MEDS: HYDROmorphone 1 MG/ML 1 ML SYRINGE IVP PRN ×3 (01:20→20:16)
[2018-03-10] MEDS: HYDROcodone/APAP 5-325MG 1 EACH TAB PO PRN ×3 (04:19→22:11)
[2018-03-10 05:27] LABS: Basophils % (A) 0 %; Eosinophils # (A) 0.2 k/uL (0-0.7); Eosinophils % (A) 2 %; HCT 37.5 % (39.0-53.0); HGB 12.5 gm/dL (13.0-17.5); Lymphocytes # (A) 1.6 k/uL (1.0-4.8); Lymphocytes % (A) 20 %; MCH 31.1 pg (25.0-35.0); MCHC 33.3 g/dL (31.0-37.0); MCV 93.4 fL (80.0-100.0); Mean Platelet Volume 6.7; Monocytes # (A) 0.5 k/uL (0-1.0); Monocytes % (A) 6 %; Neutrophils # (A) 5.9 k/uL (1.3-7.7); Neutrophils % (A) 70 %; Platelet Count 184 k/uL (150-450); RBC 4.01 m/uL (4.30-5.90); RDW 13.3 % (11.5-15.5); WBC 8.4 k/uL (3.8-10.6)
[2018-03-10 05:36] LABS: Anion Gap 5 mmol/L; Blood Urea Nitrogen 17 mg/dL (9-20); Calcium 7.5 mg/dL (8.4-10.2); Carbon Dioxide 22 mmol/L (22-30); Chloride 108 mmol/L (98-107); Glucose 167 mg/dL (74-99); Magnesium 1.7 mg/dL (1.6-2.3); Phosphorus 3.1 mg/dL (2.5-4.5); Potassium 4.7 mmol/L (3.5-5.1); Sodium 135 mmol/L (137-145)
--- NOTE | 2018-03-10 06:12 | P.PN ---
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 The patient was in his usual state of health yesterday when he was trying to help shoveling the snow outside and suddenly he felt his heart started racing. No symptoms of dizziness or lightheadedness. No syncope. No chest pain or chest discomfort. He just felt weak. Ambulance was called and the patient was found to be in wide complex tachycardia with RBBB morphology. He was given 6 and then 12 mg of adenosine without any success. Subsequently he underwent synchronized cardioversion which was also unsuccessful. The patient was started on amiodarone IV and was brought to the emergency room. The patient stated that about a year and a half ago he was diagnosed with ventricular tachycardia and he underwent an EP study and attempted ablation which was unsuccessful. At that point he was placed on metoprolol by mouth. He was discharged in stable medical condition. He stated that he was taking his medications on a regular basis. I did review the EKGs during this admission and it did show wide complex tachycardia with RBBB morphology. No discrete atrial wave seen. The echo showed normal LV function. On follow-up with the patient today, 03/10/2018, he denies having any chest pain or chest discomfort. No shortness of breath. He did undergo yesterday and EP study with Dr. Iverson an attempt for ablation as well. Apparently now he is in complete heart block with a temporary pacemaker in place set at the threshold of heart rate of 40 beats per minute. He has been maintaining a heart rate above 40 and maintaining reasonable blood pressure. Likely the patient will need to have a permanent pacemaker later on today. He continues to be on amiodarone IV Objective - Vital Signs Vital signs: Vital Signs Temp 98.2 F 03/10/18 04:00 Pulse 41 L 03/10/18 05:00 Resp 13 03/10/18 05:00 BP 99/76 03/10/18 05:00 Pulse Ox 96 03/10/18 05:00 Intake & Output 03/09/18 03/09/18 03/10/18 06:59 18:59 06:59 Intake Total 949 813.7 1585 Output Total 1100 470 645 Balance -151 343.7 940 Weight 87.6 kg 93.9 kg Intake: IV 640 813.7 1360 0.9 640 160 660 Intake, IV Titration 259 Amount Amiodarone 450 mg In 259 Dextrose 5% in Water 250 ml @ 1 MG/MIN 34.53 mls/ hr IV .Q7H31M [facility] Rx#: [id number] Oral 50 225 Output: Urine 1100 470 645 Other: Voiding Method Indwelling Catheter - Constitutional General appearance: Present: no acute distress - Respiratory Respiratory: bilateral: CTA - Cardiovascular Rhythm: regular Heart sounds: normal: S1, S2 - Labs CBC & Chem 7: 03/10/18 05:00 03/10/18 05:00 Labs: Abnormal Lab Results - Last 24 Hours (Table) 03/10/18 03/10/18 Range/Units 05:00 05:00 RBC 4.01 L (4.30-5.90) m/uL Hgb 12.5 L (13.0-17.5) gm/dL Hct 37.5 L (39.0-53.0) % Sodium 135 L (137-145) mmol/L Chloride 108 H (98-107) mmol/L Creatinine 0.64 L (0.66-1.25) mg/dL Glucose 167 H (74-99) mg/dL Calcium 7.5 L (8.4-10.2) mg/dL Assessment and Plan Assessment: Assessment #1 ventricular tachycardia of RBBB morphology. #2 complete heart block #3 status post EP study and attempt V. tach ablation Plan #1 the patient will likely benefit from permanent pacemaker implantation later on today #2 follow-up with the patient.
--- NOTE | 2018-03-10 09:30 | PN ---
PROGRESS NOTE DATE OF SERVICE: 03/10/2018 This is a 53-year-old male admitted on March 06 and transferred to the ICU from the ER. He was shoveling snow and apparently developed a rapid heartbeat, was found to have supraventricular tachycardia. The patient was cardioverted unsuccessfully by EMS. Subsequent to that, he received 3 doses of adenosine without benefit. He also received beta richard and calcium channel richard without benefit. The patient was admitted to the ICU, started on amiodarone according to a discussion that the physician had with his validation engineer. Anyway, the patient was doing relatively well here. The amiodarone was weaned off, but unfortunately developed SVT again and the amiodarone was restarted. Yesterday when I saw him it was running at 0.5 mg/minute. Apparently yesterday, he went to the electrophysiologic laboratory for EP study. He had the amiodarone turned off at 0900. He had an ablation done at 14:00 pm and did not come back to the ICU until 2099. He came back to the ICU having developed third-degree heart block. They placed a transvenous pacemaker. He was started on dopamine at 3 mcg/kg per per minute. He is also receiving lactated Ringer's at 20 mL an hour and O2 at 2 L by nasal cannula. In addition, the plan is do a permanent pacemaker insertion tomorrow. Currently, the patient is resting comfortably. He has no complaints. No shortness of breath. No chest pain or chest discomfort. Current vital signs include a temperature 98.2, heart rate 40, respiratory rate 18, blood pressure was 91/59, mean 70 and 2 L saturation of 95%-97%. Appears in no acute distress. HEENT examination is grossly unremarkable. Mucous membranes are moist. No oral lesions. Nasal O2 noted. Neck is supple. Full range of motion. No adenopathy, thyromegaly or neck vein distention. Cardiovascular examination reveals bradycardia. Heart rate between 40 and 50 beats per minute. S1, S2 normal. Lungs reveal relatively clear breath sounds. No wheezes, rhonchi, or crackles. Breath sounds are equal bilaterally. Abdomen is soft. Bowel sounds are heard. Extremities are intact. No cyanosis, clubbing, or edema. Skin is without rash. Neurologic examination is brief but nonfocal. LABS: Reviewed. White count 8.4, hemoglobin 12.5, hematocrit 37.5, platelet count 184,000 sodium 135, potassium 4.7, chloride 108, CO2 is 28, anion gap is 5, BUN and creatinine were 17 and 0.64. Microbiology studies are negative. No recent chest x-ray. Medications are reviewed. ASSESSMENT: 1. Status post ablation on March 09, with subsequent third-degree heart block and placement of a transvenous pacemaker. 2. Anticipated permanent pacemaker insertion on March 11. 3. History of recurrent SVT, controlled on amiodarone. 4. Gastroesophageal reflux disease. 5. Previous history of tobacco use. 6. History of depression. 7. Previous history of ablation. 8. Chest pain and mild elevation of troponins, likely related to supply/demand mismatch. PLAN: The patient will likely have a permanent pacemaker placed tomorrow. Anyway, that is the plan. He remains on IV dopamine at 3 mcg/kg per per minute. He has a transvenous pacemaker in place. He is getting O2 at 2L. He had an attempted ablation yesterday. He came back to the ICU in a third-degree heart block. No additional recommendations are made. Prognosis is guarded. Critical care time is 33 minutes. MMODL / IJN: [id number] /
[2018-03-10] MEDS: ASPIRIN 325 MG TAB PO SCH (09:39)
[2018-03-10] MEDS: FAMOTIDINE 20 MG TAB PO SCH ×2 (09:39→20:17)
[2018-03-10] MEDS: MAGNESIUM SULFATE-D5W PMX 1 GM in DEXTROSE/WATER 1 100ML.BAG IVPB SCH ×2 (09:42→12:12)
--- NOTE | 2018-03-10 13:12 | P.PN ---
Subjective Electrophysiology follow-up note patient is doing well No sustained ventricular tachycardia to chest pain no dizziness lightheadedness The right groin is healed well as no hematoma minimal tenderness Left groin has a venous sheath with the TVP Patient still has complete heart block I will stop dopamine today Examination revealed normal heart sounds Breath sounds are clear Abdomen is soft nontender Extremities are warm Distal pulses well palpable Groins of healed well At a very detailed discussion with the patient and his . 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 Detailed mapping was performed and the entrance, mid portion and the distal exit of this VT was very carefully defined with activation mapping of systolic signals as well as activation mapping of the diastolic signals. The His bundle left posterior fascicle and left ICA fascicle were carefully mapped and tagged in sinus rhythm prior to this to define the area of mapping His circuit is very close to the distal end of the His bundle Ablation in the mid segment of the circuit distal end as well as the proximal portion that is defined did not terminate the arrhythmia The arrhythmia was trephinated within the distal His bundle area was being mapped for entrainment mapping and with pressure application, mechanical pressure with the catheter the ventricular tachycardia terminated but he also went into complete heart block. This site was about 8 mm from the circuit The proximal end of the circuit was deemed to be the most critical part of the circuit but ablation was performed right upper and to that end and the state clear of the distal His bundle. However simply mapping and mechanical pressure just proximal to this critical area of the circuit for VT resulted in termination, thereby confirming that I mapped was accurate but its proximity to the His bundle resulted in heart block Plan his treatment for ventricular tachycardia is permanent pacemaker implantation with Bi V pacing since he will likely experience a high RV pacing percentage in the future although I do expect that this heart block which ultimately resolved since it was triggered by application of mechanical pressure , not any ablation at the distal his The treatment of his ventricular tachycardia is biventricular permanent pacemaker implantation and once his AV block recovers, then it will be likely that his ventricular tachycardia would come back and at that point in the mapping the proximal ostial fascicle and ablation would be needed. At that time , complete heart block risk is very high with RF energy given that the critical portion of this VT circuit is very close to the distal His bundle I discussed the risks of permanent pacing including 1% risk of cardiac puncture 1% risk of lung puncture and long-term infection. Does and don'ts of permanent pacing and afterwards were discussed the patient and his . The procedure was explained all questions were answered and I will schedule the procedure for Tuesday Objective - Vital Signs Vital signs: Vital Signs Temp 98.7 F 03/10/18 12:00 Pulse 44 L 03/10/18 12:00 Resp 24 03/10/18 12:00 BP 107/64 03/10/18 12:00 Pulse Ox 96 03/10/18 12:00 Intake & Output 03/09/18 03/10/18 03/10/18 18:59 06:59 18:59 Intake Total 813.7 1605 420 Output Total 470 680 214 Balance 343.7 925 206 Weight 93.9 kg Intake: IV 813.7 1380 170 0.9 160 680 120 tvp 10 50 Intake, IV Titration 250 Amount Magnesium Sulfate-D5w Pmx 200 1 gm In Dextrose/Water 1 100ml.bag @ 100 mls/hr IVPB Q1H [facility] Rx#: [id number] ceFAZolin 1,000 mg In 50 Dextrose/Water 1 50ml.bag @ 100 mls/hr IVPB Q8HR [facility] Rx#:[id number] Oral 225 Output: Urine 470 680 214 Other: Voiding Method Indwelling Catheter Indwelling Catheter - Labs CBC & Chem 7: 03/10/18 05:00 03/10/18 05:00 Labs: Abnormal Lab Results - Last 24 Hours (Table) 03/10/18 03/10/18 Range/Units 05:00 05:00 RBC 4.01 L (4.30-5.90) m/uL Hgb 12.5 L (13.0-17.5) gm/dL Hct 37.5 L (39.0-53.0) % Sodium 135 L (137-145) mmol/L Chloride 108 H (98-107) mmol/L Creatinine 0.64 L (0.66-1.25) mg/dL Glucose 167 H (74-99) mg/dL Calcium 7.5 L (8.4-10.2) mg/dL
--- NOTE | 2018-03-10 14:19 | P.PN ---
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 Patient ended up coming to the emergency department pulse rate remain are bound 100 5260 bpm initially was started on Cardizem drip not successful cardiology were contacted and end up having him start on amiodarone at that point patient was sent to the intensive care unit and Dr. Iverson was notify on his admission. 03/08: Echocardiogram reveals EF greater than 55%, mild mitral regurgitation, mild tricuspid regurgitation, no pulmonary hypertension. Patient's rhythm converted to sinus rhythm while he was on amiodarone. Dr. Iverson is started him on verapamil with no plan for amiodarone at home. Plan is for V. tach ablation in the near future. Patient has remained in sinus rhythm and has been hemodynamically stable. He has been cleared for discharge by cardiology, Dr. Iverson and certified coatings inspector. Patient will be discharged home today in stable condition. After patient ambulated in the hallway he went into a wide QRS tachycardia and discharge was canceled. Patient was continued on amiodarone drip and verapamil was ordered at bedtime. 03/09: Patient is continued on amiodarone IV which was discontinued this morning but heart rate is still running in the 140s. Magnesium has been replaced. Patient is scheduled for EP study and ablation with Dr. Iverson today. Patient denies having any chest pain or shortness of breath, lightheadedness or dizziness. Blood pressure is 102/73. Pulse ox 94% on room air. 03/10: Patient remains in the intensive care unit. Patient denies any chest pain or palpitations. Yesterday he underwent EP study with Dr. Iverson and attempted for ablation but patient was then in complete heart block with temporary pacemaker set at 40 bpm. He has been maintaining a heart rate above 40. Plan is for biventricular permanent pacemaker implantation on Tuesday. Plan once AV block recovers likely V. tach will come back and at that point repeat EP study and ablation will be needed. Verapamil was discontinued. Systolic blood pressure 90. Pulse ox is 95%. Magnesium 1.7, blood sugar 167, creatinine 0.64, sodium 135, potassium 4.7, chloride 108, CO2 22. patient is currently on dopamine drip. Magnesium is been replaced. Patient is off amiodarone Review Of Systems: Constitutional: No fever, no chills, no night sweats. No weight change. No weakness, fatigue or lethargy. No daytime sleepiness. EENT: No headache. No blurred vision or double vision, no loss of vision. No loss of Hearing, no ringing in the ears, no dizziness. No nasal drainage or congestion. No epistaxis. No sore throat. Lungs: No shortness of breath, cough, no sputum production. No wheezing. Cardiovascular: No chest pain, no lower extremity edema. No palpitations. Irregular heartbeat No paroxysmal nocturnal dyspnea. No orthopnea. No lightheadedness or dizziness. No syncopal episodes. Abdominal: No abdominal pain. No nausea, vomiting. No diarrhea. No constipation. No bloody or tarry stools. Genitourinary: No dysuria, increased frequency, urgency. No urinary retention. Musculoskeletal: No myalgias. No muscle weakness, no gait dysfunction, no frequent falls. No back pain. No neck pain. Integumentary: No wounds, no lesions. No rash or pruritus. No unusual bruising. No change in hair or nails. Neurologic: No aphasia. No facial droop. No change in mentation. No head injury. No headache. No paralysis. No paresthesia. Psychiatric: No depression. No anxiety. No mood swings. Endocrine: No abnormal blood sugars. No weight change. No excessive sweating or thirst. Objective - Vital Signs Vital signs: Vital Signs Temp 98.2 F 03/10/18 04:00 Pulse 40 L 03/10/18 07:00 Resp 15 03/10/18 07:00 BP 90/58 03/10/18 07:00 Pulse Ox 95 03/10/18 07:00 Intake & Output 03/09/18 03/10/18 03/10/18 18:59 06:59 18:59 Intake Total 813.7 1605 20 Output Total 470 680 35 Balance 343.7 925 -15 Weight 93.9 kg Intake: IV 813.7 1380 20 0.9 160 680 20 Oral 225 Output: Urine 470 680 35 Other: Voiding Method Indwelling Catheter - Exam General Appearance: Alert, cooperative, no distress, appears stated age. Patient is resting in ICU bed. Patient's is at the bedside. Neck HEENT: Supple, no lymphadenopathy, no thyroid enlargement, no carotid bruits. Lungs: Clear to auscultation without crackles or wheezes no rhonchi, no deformity. Chest Wall: Chest wall normal expansion with deep inspiration no tenderness and no deformity was found on exam, no costochondral pain or discomfort. Heart: Irregular rhythm and rate S1-S2 positive street positive tachycardia with pulse rate running 100 4250 beats per minutes. Back: Symmetric, no curvature, ROM normal, no CVA tenderness. Abdomen: Soft, non-tender, bowel sounds active all four quadrants, no masses, no organomegaly. [place] catheter draining dark lydia urine. Extremities: Extremities normal, atraumatic, no cyanosis or edema. Pulses: 2+ and symmetric. Skin: Skin color, texture, tugor normal, no rashes or lesions. Neurologic: Alert oriented x3 cranial nerves II through XII intact, no motor deficit, no abnormal balance or gait. - Labs CBC & Chem 7: 03/10/18 05:00 03/10/18 05:00 Labs: Abnormal Lab Results - Last 24 Hours (Table) 03/10/18 03/10/18 Range/Units 05:00 05:00 RBC 4.01 L (4.30-5.90) m/uL Hgb 12.5 L (13.0-17.5) gm/dL Hct 37.5 L (39.0-53.0) % Sodium 135 L (137-145) mmol/L Chloride 108 H (98-107) mmol/L Creatinine 0.64 L (0.66-1.25) mg/dL Glucose 167 H (74-99) mg/dL Calcium 7.5 L (8.4-10.2) mg/dL Assessment and Plan Plan: 1 ventricular tachycardia: Amiodarone drip discontinued, verapamil has been discontinued, EP study with Dr. Iverson with ablation and complete heart block currently with temporary pacemaker. Plan is for biventricular permanent pacemaker implantation on Tuesday. Plan once AV block recovers likely V. tach will come back and at that point repeat EP study and ablation will be needed. 2 chest pain and mildly elevated troponin: Secondary to ventricular tachycardia. 3 severe GERD: Has been on omeprazole which will be continued for now. 4 jaw pain: Post with cannot recently with his dentist is supposed to go for further workup on it I can feel or see any abscess patient will be on smaller dose of hydrocodone for pain. 5 chronic depression: Has been on Elavil continue medication still on smaller dose of clonazepam for insomnia as well. 6 GI prophylaxis: Patient is on omeprazole. 7 DVT prophylaxis: Continue anticoagulation for now. CODE STATUS: Full code. Discharge plan: Home Impression and plan of care have been directed as dictated by the signing physician. Maria M Echeverria nurse practitioner acting as scribe for signing physician.
[2018-03-10] MEDS: AMITRIPTYLINE HCL 50 MG TAB PO SCH (20:28)
[2018-03-10] MEDS: clonazePAM 0.5 MG TAB PO SCH (20:28)
[2018-03-11] MEDS: HYDROmorphone 1 MG/ML 1 ML SYRINGE IVP PRN ×4 (04:26→20:01)
[2018-03-11 04:34] LABS: Basophils % (A) 0 %; Eosinophils # (A) 0.5 k/uL (0-0.7); Eosinophils % (A) 5 %; HCT 39.6 % (39.0-53.0); HGB 12.7 gm/dL (13.0-17.5); Lymphocytes # (A) 2.1 k/uL (1.0-4.8); Lymphocytes % (A) 21 %; MCH 29.2 pg (25.0-35.0); MCHC 32.1 g/dL (31.0-37.0); MCV 91.2 fL (80.0-100.0); Mean Platelet Volume 7.2; Monocytes # (A) 0.6 k/uL (0-1.0); Monocytes % (A) 6 %; Neutrophils # (A) 6.4 k/uL (1.3-7.7); Neutrophils % (A) 66 %; Platelet Count 177 k/uL (150-450); RBC 4.34 m/uL (4.30-5.90); WBC 9.8 k/uL (3.8-10.6)
[2018-03-11 04:45] LABS: Anion Gap 4 mmol/L; Blood Urea Nitrogen 17 mg/dL (9-20); Calcium 7.9 mg/dL (8.4-10.2); Carbon Dioxide 26 mmol/L (22-30); Chloride 107 mmol/L (98-107); Glucose 106 mg/dL (74-99); Phosphorus 2.8 mg/dL (2.5-4.5); Potassium 4.5 mmol/L (3.5-5.1); Sodium 137 mmol/L (137-145)
[2018-03-11] MEDS: HYDROcodone/APAP 5-325MG 1 EACH TAB PO PRN ×2 (06:39→16:51)
[2018-03-11] MEDS: ceFAZolin 1,000 MG in DEXTROSE/WATER 1 50ML.BAG IVPB SCH ×3 (08:43→23:41)
[2018-03-11] MEDS: FAMOTIDINE 20 MG TAB PO SCH ×2 (08:44→20:01)
[2018-03-11] MEDS: ASPIRIN 325 MG TAB PO SCH (08:44)
[2018-03-11] MEDS ORDERED: SENNOSIDES 8.6 MG TAB PO PRN (08:57)
--- NOTE | 2018-03-11 10:22 | P.PN ---
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 Patient ended up coming to the emergency department pulse rate remain are bound 100 5260 bpm initially was started on Cardizem drip not successful cardiology were contacted and end up having him start on amiodarone at that point patient was sent to the intensive care unit and Dr. Iverson was notify on his admission. 03/08: Echocardiogram reveals EF greater than 55%, mild mitral regurgitation, mild tricuspid regurgitation, no pulmonary hypertension. Patient's rhythm converted to sinus rhythm while he was on amiodarone. Dr. Iverson is started him on verapamil with no plan for amiodarone at home. Plan is for V. tach ablation in the near future. Patient has remained in sinus rhythm and has been hemodynamically stable. He has been cleared for discharge by cardiology, Dr. Iverson and urogynecology physician. Patient will be discharged home today in stable condition. After patient ambulated in the hallway he went into a wide QRS tachycardia and discharge was canceled. Patient was continued on amiodarone drip and verapamil was ordered at bedtime. 03/09: Patient is continued on amiodarone IV which was discontinued this morning but heart rate is still running in the 140s. Magnesium has been replaced. Patient is scheduled for EP study and ablation with Dr. Iverson today. Patient denies having any chest pain or shortness of breath, lightheadedness or dizziness. Blood pressure is 102/73. Pulse ox 94% on room air. 03/10: Patient remains in the intensive care unit. Patient denies any chest pain or palpitations. Yesterday he underwent EP study with Dr. Iverson and attempted for ablation but patient was then in complete heart block with temporary pacemaker set at 40 bpm. He has been maintaining a heart rate above 40. Plan is for biventricular permanent pacemaker implantation on Tuesday. Plan once AV block recovers likely V. tach will come back and at that point repeat EP study and ablation will be needed. Verapamil was discontinued. Systolic blood pressure 90. Pulse ox is 95%. Magnesium 1.7, blood sugar 167, creatinine 0.64, sodium 135, potassium 4.7, chloride 108, CO2 22. patient is currently on dopamine drip. Magnesium is been replaced. Patient is off amiodarone. 03/11: Patient continues to remain in the intensive care unit, he denies any chest pain, palpitations, or shortness of breath. EP study was done and attempted ablation on 03/08. He continues with the temporary pacemaker with plans for biventricular permanent pacemaker implantation on Tuesday. Maintaining heart rate in the 40s, blood pressure stable oxygen 95% on 2 L via nasal cannula. Patient is off his dopamine infusion as of yesterday. BUN 17, creatinine 0.7, potassium 4.5, and magnesium 2.0. Objective - Vital Signs Vital signs: Vital Signs Temp 98.2 F 03/11/18 08:01 Pulse 48 L 03/11/18 09:00 Resp 21 03/11/18 09:00 BP 114/77 03/11/18 09:00 Pulse Ox 94 L 03/11/18 09:00 Intake & Output 03/10/18 03/11/18 03/11/18 18:59 06:59 18:59 Intake Total 680 470 460 Output Total 729 1375 500 Balance -49 -905 -40 Weight 94.3 kg Intake: IV 380 470 110 0.9 260 300 40 ceFAZolin 1,000 mg In 50 50 Dextrose/Water 1 50ml.bag @ 100 mls/hr IVPB Q8HR [facility] Rx#:[id number] tvp 10 120 120 20 Intake, IV Titration 300 Amount Magnesium Sulfate-D5w Pmx 200 1 gm In Dextrose/Water 1 100ml.bag @ 100 mls/hr IVPB Q1H [facility] Rx#: [id number] ceFAZolin 1,000 mg In 100 Dextrose/Water 1 50ml.bag @ 100 mls/hr IVPB Q8HR [facility] Rx#:[id number] Oral 350 Output: Urine 729 1375 500 Other: Voiding Method Indwelling Catheter Indwelling Catheter - Constitutional General appearance: Present: average body habitus, no acute distress - EENT Eyes: Present: EOMI, PERRLA ENT: Present: hearing grossly normal, normal oropharynx - Neck Neck: Present: normal ROM. Absent: lymphadenopathy, thyromegaly Thyroid: bilateral: normal size, negative: enlarged, nodule - Respiratory Respiratory: bilateral: CTA, negative: dullness, rhonchi, wheezing - Cardiovascular Rhythm: irregularly irregular Heart sounds: normal: S1, S2 - Gastrointestinal General gastrointestinal: Present: decreased bowel sounds, normal bowel sounds, soft. Absent: distended, hepatomegaly, organomegaly, splenomegaly, tenderness - Integumentary Integumentary: Present: normal. Absent: rash - Neurologic Neurologic: Present: CNII-XII intact. Absent: focal deficits - Musculoskeletal Musculoskeletal: Present: strength equal bilaterally. Absent: right sided weakness, left sided weakness - Psychiatric Psychiatric: Present: A&O x's 3, appropriate affect - Labs CBC & Chem 7: 03/11/18 04:21 03/11/18 04:21 Labs: Abnormal Lab Results - Last 24 Hours (Table) 03/11/18 03/11/18 Range/Units 04:21 04:21 Hgb 12.7 L (13.0-17.5) gm/dL Glucose 106 H (74-99) mg/dL Calcium 7.9 L (8.4-10.2) mg/dL Assessment and Plan Plan: 1 ventricular tachycardia: Amiodarone drip discontinued, verapamil has been discontinued, as well as dopamine drip, EP study with Dr. Iverson with ablation and complete heart block currently with temporary pacemaker. Plan is for biventricular permanent pacemaker implantation on Tuesday. Elavil continues to be held due to concern for prolonged QT 2 chest pain and mildly elevated troponin: Secondary to ventricular tachycardia. 3 severe GERD: Continue on omeprazole 4 jaw pain: Was seen dentist and is supposed to go for further workup, no abscess, patient will be on smaller dose of hydrocodone for pain. 5 chronic depression: Has been on Elavil continue to hold due to prolonged QT 6 GI prophylaxis: Patient is on omeprazole. 7 DVT prophylaxis: Continue anticoagulation for now. CODE STATUS: Full code. The above impression and plan of care have been discussed and directed by signing physician. Bonita Martinez nurse practitioner acting as scribe for signing physician.
--- NOTE | 2018-03-11 10:38 | P.PN ---
Subjective Progress Note Date: 03/11/18 Principal diagnosis: SVT status post ablation with subsequent complete heart block. This is a very pleasant 53-year-old gentleman with a known history of recurrent supraventricular tachycardia with previous ablation, gastroesophageal reflux disease, previous tobacco dependence, depression. . He had presented here with an episode of supraventricular tachycardia. He was quite resistant to most medications. Subsequently placed on amiodarone. He did undergo an ablation on 03/09/2018 and developed complete heart block. He has a transvenous pacemaker in place. The plan is for permanent pacemaker implantation on 03/13/2018. He is seen again today in follow-up in the intensive care unit. He is awake and alert in no acute distress. He denies any chest pain currently. No palpitations, lightheadedness or dizziness. No shortness of breath, cough or congestion. He is maintaining good O2 saturations in the mid 90s on 2 L/m per nasal cannula. He's been afebrile. Heart rate in the 40s. Blood pressure stable. Lactated Ringer's at 20 ML's per hour. White count 9.8. Hemoglobin 12.7. Creatinine 0.70. Objective - Vital Signs Vital signs: Vital Signs Temp 98.2 F 03/11/18 08:01 Pulse 48 L 03/11/18 09:00 Resp 21 03/11/18 09:00 BP 114/77 03/11/18 09:00 Pulse Ox 94 L 03/11/18 09:00 Intake & Output 03/10/18 03/11/18 03/11/18 18:59 06:59 18:59 Intake Total 680 470 460 Output Total 729 1375 500 Balance -49 -905 -40 Weight 94.3 kg Intake: IV 380 470 110 0.9 260 300 40 ceFAZolin 1,000 mg In 50 50 Dextrose/Water 1 50ml.bag @ 100 mls/hr IVPB Q8HR [facility] Rx#:[id number] tvp 10 120 120 20 Intake, IV Titration 300 Amount Magnesium Sulfate-D5w Pmx 200 1 gm In Dextrose/Water 1 100ml.bag @ 100 mls/hr IVPB Q1H [facility] Rx#: [id number] ceFAZolin 1,000 mg In 100 Dextrose/Water 1 50ml.bag @ 100 mls/hr IVPB Q8HR [facility] Rx#:[id number] Oral 350 Output: Urine 729 1375 500 Other: Voiding Method Indwelling Catheter Indwelling Catheter - Exam GENERAL EXAM: Alert, comfortable in no apparent distress. Nasal O2. HEAD: Normocephalic. EYES: Normal reaction of pupils, equal size. NOSE: Clear with pink turbinates. THROAT: No erythema or exudates. NECK: No masses, no JVD. CHEST: No chest wall deformity. LUNGS: Equal air entry with no crackles, wheeze, rhonchi or dullness. CVS: S1 and S2 normal with no audible murmur, regular rhythm. Bradycardic in the 40s. Transvenous pacemaker in place. ABDOMEN: No hepatosplenomegaly, normal bowel sounds, no guarding or rigidity. SPINE: No scoliosis or deformity SKIN: No rashes CENTRAL NERVOUS SYSTEM: No focal deficits, tone is normal in all 4 extremities. EXTREMITIES: There is no peripheral edema. No clubbing, no cyanosis. Peripheral pulses are intact. - Labs CBC & Chem 7: 03/11/18 04:21 03/11/18 04:21 Labs: Abnormal Lab Results - Last 24 Hours (Table) 03/11/18 03/11/18 Range/Units 04:21 04:21 Hgb 12.7 L (13.0-17.5) gm/dL Glucose 106 H (74-99) mg/dL Calcium 7.9 L (8.4-10.2) mg/dL Assessment and Plan Assessment: Impression: #1 Supraventricular tachycardia status post ablation on 03/09/2018 with subsequent third-degree heart block and please do not transvenous pacemaker. Plan is for permanent pacemaker on 03/13/2017. #2 History of recurrent SVT, controlled on amiodarone. #3 Previous history of ablation. #4 Gastroesophageal reflux disease. #5 Previous history of tobacco use. #6 History of depression. Plan: The patient was seen and evaluated by Dr. Oconnell. He is currently stable from the pulmonary and critical care standpoint. Transvenous pacemaker remains in place. He remains in complete heart block. Plan is for permanent pacemaker implantation on 03/13/2018. We'll continue to monitor him closely here in the intensive care unit for now. We will continue to follow make further recommendations based on his clinical status. I, the cosigning physician, performed a history & physical examination of the patient. Lungs sounds are clear. Maintaining good O2 saturations in the 90s on 2 L/m per nasal cannula. I discussed the assessment and plan of care with my nurse practitioner, Estephania Otto. I attest to the above note as dictated by her.
--- NOTE | 2018-03-11 12:43 | PN ---
PROGRESS NOTE Mr. Connor is a 53-year-old male with a history of ventricular tachycardia. When he was admitted to the hospital. He has underwent in the past prior attempted ablation. He had a normal left ventricular systolic function by echo-cardiography. He was seen by Dr. Iverson and the plan was to proceed with a ablation but the patient was found in 60s heart block and a temporary pacemaker was inserted. The plan was to proceed with a permanent pacemaker implantation later. On Tuesday. He is doing well this morning. His main complaint is lying flat. He has no chest pain. He continues to be in the complete heart block. He continues to be at this time on aspirin, Pepcid and amitriptyline. PHYSICAL EXAMINATION: Blood pressure 114/70 with a heart rate in 40s. LUNGS: Clear. HEART: Regular rate and rhythm, S1, S2. No S3 with a systolic murmur. ABDOMEN: Soft, nontender. Pacemaker site clean. IMPRESSION: 1. Status post temporary pacemaker implantation for complete heart block. 2. Episode of ventricular tachycardia without any recurrence. RECOMMENDATION: Patient will continue present therapy. Will discuss the case with Dr. Iverson regarding the timing of the pacemaker implantation and in the meantime, will continue on the present regimen. MMODL / IJN: [id number] /
[2018-03-11] MEDS: ENOXAPARIN 40 MG/0.4 ML SYRINGE SQ SCH (16:55)
[2018-03-11] MEDS: clonazePAM 0.5 MG TAB PO SCH (20:00)
[2018-03-11] MEDS: AMITRIPTYLINE HCL 50 MG TAB PO SCH (20:00)
[2018-03-12] MEDS: HYDROmorphone 1 MG/ML 1 ML SYRINGE IVP PRN ×4 (02:49→20:58)
[2018-03-12 06:12] LABS: Basophils % (A) 0 %; Eosinophils % (A) 12 %; HCT 42.2 % (39.0-53.0); HGB 14.2 gm/dL (13.0-17.5); Lymphocytes # (A) 1.7 k/uL (1.0-4.8); Lymphocytes % (A) 20 %; MCH 30.6 pg (25.0-35.0); MCHC 33.6 g/dL (31.0-37.0); MCV 91.2 fL (80.0-100.0); Mean Platelet Volume 6.7; Monocytes # (A) 0.5 k/uL (0-1.0); Monocytes % (A) 5 %; Neutrophils # (A) 5.2 k/uL (1.3-7.7); Neutrophils % (A) 61 %; Platelet Count 201 k/uL (150-450); RBC 4.63 m/uL (4.30-5.90); WBC 8.6 k/uL (3.8-10.6)
[2018-03-12 06:13] LABS: Eosinophils # (A) 1.1 k/uL (0-0.7)
[2018-03-12 06:19] LABS: Anion Gap 6 mmol/L; Blood Urea Nitrogen 13 mg/dL (9-20); Calcium 8.5 mg/dL (8.4-10.2); Carbon Dioxide 26 mmol/L (22-30); Chloride 105 mmol/L (98-107); Glucose 103 mg/dL (74-99); Magnesium 1.9 mg/dL (1.6-2.3); Phosphorus 3.8 mg/dL (2.5-4.5); Potassium 4.6 mmol/L (3.5-5.1); Sodium 137 mmol/L (137-145)
[2018-03-12] MEDS: HYDROcodone/APAP 5-325MG 1 EACH TAB PO PRN ×3 (06:31→18:27)
[2018-03-12] MEDS: MAGNESIUM SULFATE-D5W PMX 1 GM in DEXTROSE/WATER 1 100ML.BAG IVPB SCH ×2 (06:44→08:18)
[2018-03-12] MEDS: FAMOTIDINE 20 MG TAB PO SCH ×2 (08:19→20:05)
[2018-03-12] MEDS: ENOXAPARIN 40 MG/0.4 ML SYRINGE SQ SCH (08:19)
[2018-03-12] MEDS: ASPIRIN 325 MG TAB PO SCH (08:19)
[2018-03-12] MEDS: ceFAZolin 1,000 MG in DEXTROSE/WATER 1 50ML.BAG IVPB SCH ×2 (08:20→15:58)
--- NOTE | 2018-03-12 09:12 | P.PN ---
Subjective 53-year-old male one of Dr. 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 Patient ended up coming to the emergency department pulse rate remain are bound 100 5260 bpm initially was started on Cardizem drip not successful cardiology were contacted and end up having him start on amiodarone at that point patient was sent to the intensive care unit and Dr. Iverson was notify on his admission. 03/08: Echocardiogram reveals EF greater than 55%, mild mitral regurgitation, mild tricuspid regurgitation, no pulmonary hypertension. Patient's rhythm converted to sinus rhythm while he was on amiodarone. Dr. Iverson is started him on verapamil with no plan for amiodarone at home. Plan is for V. tach ablation in the near future. Patient has remained in sinus rhythm and has been hemodynamically stable. He has been cleared for discharge by cardiology, Dr. Iverson and naval architect. Patient will be discharged home today in stable condition. After patient ambulated in the hallway he went into a wide QRS tachycardia and discharge was canceled. Patient was continued on amiodarone drip and verapamil was ordered at bedtime. 03/09: Patient is continued on amiodarone IV which was discontinued this morning but heart rate is still running in the 140s. Magnesium has been replaced. Patient is scheduled for EP study and ablation with Dr. Iverson today. Patient denies having any chest pain or shortness of breath, lightheadedness or dizziness. Blood pressure is 102/73. Pulse ox 94% on room air. 03/10: Patient remains in the intensive care unit. Patient denies any chest pain or palpitations. Yesterday he underwent EP study with Dr. Iverson and attempted for ablation but patient was then in complete heart block with temporary pacemaker set at 40 bpm. He has been maintaining a heart rate above 40. Plan is for biventricular permanent pacemaker implantation on Tuesday. Plan once AV block recovers likely V. tach will come back and at that point repeat EP study and ablation will be needed. Verapamil was discontinued. Systolic blood pressure 90. Pulse ox is 95%. Magnesium 1.7, blood sugar 167, creatinine 0.64, sodium 135, potassium 4.7, chloride 108, CO2 22. patient is currently on dopamine drip. Magnesium is been replaced. Patient is off amiodarone. 03/11: Patient continues to remain in the intensive care unit, he denies any chest pain, palpitations, or shortness of breath. EP study was done and attempted ablation on 03/08. He continues with the temporary pacemaker with plans for biventricular permanent pacemaker implantation on Tuesday. Maintaining heart rate in the 40s, blood pressure stable oxygen 95% on 2 L via nasal cannula. Patient is off his dopamine infusion as of yesterday. BUN 17, creatinine 0.7, potassium 4.5, and magnesium 2.0. 03/12: Patient continues to maintain heart rate into the 40s, blood pressure 128/ 73, 97% on 2 L via nasal cannula. He denies any chest pain, palpitations, nausea vomiting or shortness of breath. He continues to be in complete heart block transvenous pacemaker in place, plans are still to proceed with permanent pacemaker on Tuesday. He continues to be monitored closely in the intensive care unit. Objective - Vital Signs Vital signs: Vital Signs Temp 99.3 F 03/12/18 04:00 Pulse 47 L 03/12/18 06:00 Resp 16 03/12/18 06:00 BP 128/73 03/12/18 06:00 Pulse Ox 97 03/12/18 06:00 Intake & Output 03/11/18 03/11/18 03/12/18 06:59 18:59 06:59 Intake Total 470 1660 555 Output Total 1375 1450 1625 Balance -905 210 -1070 Weight 94.3 kg 92.1 kg Intake: IV 470 450 555 0.9 300 240 325 Magnesium Sulfate-D5w Pmx 100 1 gm In Dextrose/Water 1 100ml.bag @ 100 mls/hr IVPB Q1H SANDI Rx#: [id number] ceFAZolin 1,000 mg In 50 100 Dextrose/Water 1 50ml.bag @ 100 mls/hr IVPB Q8HR SANDI Rx#:[id number] tvp 10 120 110 130 Oral 1210 Output: Urine 1375 1450 1625 Other: Voiding Method Indwelling Catheter Indwelling Catheter Indwelling Catheter - Exam - Constitutional General appearance: Present: average body habitus, no acute distress - EENT Eyes: Present: EOMI, PERRLA ENT: Present: hearing grossly normal, normal oropharynx - Neck Neck: Present: normal ROM. Absent: lymphadenopathy, thyromegaly Thyroid: bilateral: normal size, negative: enlarged, nodule - Respiratory Respiratory: bilateral: CTA, negative: dullness, rhonchi, wheezing - Cardiovascular Rhythm: irregularly irregular, transvenous pacemaker in place Heart sounds: normal: S1, S2 - Gastrointestinal General gastrointestinal: Present: decreased bowel sounds, normal bowel sounds, soft. Absent: distended, hepatomegaly, organomegaly, splenomegaly, tenderness - Integumentary Integumentary: Present: normal. Absent: rash - Neurologic Neurologic: Present: CNII-XII intact. Absent: focal deficits - Musculoskeletal Musculoskeletal: Present: strength equal bilaterally. Absent: right sided weakness, left sided weakness - Psychiatric Psychiatric: Present: A&O x's 3, appropriate affect - Labs CBC & Chem 7: 03/12/18 05:10 03/12/18 05:10 Labs: Abnormal Lab Results - Last 24 Hours (Table) 03/12/18 03/12/18 Range/Units 05:10 05:10 Eosinophils # 1.1 H (0-0.7) k/uL Glucose 103 H (74-99) mg/dL Assessment and Plan Plan: 1 ventricular tachycardia: Amiodarone drip discontinued, verapamil has been discontinued, as well as dopamine drip, EP study with Dr. Iverson with ablation and complete heart block currently with temporary pacemaker. Plan is for biventricular permanent pacemaker implantation on Tuesday. 2 chest pain and mildly elevated troponin: Secondary to ventricular tachycardia. 3 severe GERD: Continue on omeprazole 4 jaw pain: Was seen dentist and is supposed to go for further workup, no abscess, patient will be on small dose of hydrocodone for pain. 5 chronic depression: Elavil 150mg at HS 6 GI prophylaxis: Patient is on omeprazole. 7 DVT prophylaxis: Continue Lovenox CODE STATUS: Full code. The above impression and plan of care have been discussed and directed by signing physician. Bonita Martinez nurse practitioner acting as scribe for signing physician.
--- NOTE | 2018-03-12 09:32 | PN ---
PROGRESS NOTE DATE OF SERVICE: 03/12/2018 This is a 53-year-old male with a history of complete heart block following an attempted ablation for SVT. The patient came back to the ICU with a transvenous pacemaker which is still in place. He is going for permanent pacemaker tomorrow. He is getting O2 at 2 L. He is getting lactated Ringer's a 20 mL an hour. He is also getting saline IV at 25 mL an hour. The patient is currently doing reasonably well. The patient has a history of recurrent SVT status post previous ablations, GERD, previous tobacco dependence, and depression. The patient is doing well. Denies shortness of breath, chest pain. Current vital signs are reviewed. Temperature is 99.3 heart rate 48, respiratory rate 18, blood pressure 123/76, mean 91, room air saturation 95%. Appears in no acute distress. HEENT examination is grossly unremarkable. Mucous membranes are moist. Neck is supple. Full range of motion. No adenopathy or thyromegaly. Neck veins are flat. Cardiovascular examination reveals a heart rate of 50 beats per minute. S1, S2 normal. No murmur. Lungs are clear. Breath sounds equal. No wheezes or rhonchi. Abdomen is soft. Bowel sounds are heard. No masses or tenderness. Extremities are intact. No cyanosis, clubbing, or edema. Skin without rash. Neurologic examination is nonfocal. LABS: Reviewed. White count is 8.6, hemoglobin 14.2, hematocrit 42.2, platelet count 301,000. Sodium, potassium, chloride, CO2 anion gap, BUN, creatinine all normal. No x-ray to report. ASSESSMENT: 1. Acute paroxysmal supraventricular tachycardia in a patient with a known history of supraventricular tachycardia, recurrent. 2. Status post attempted ablation with complete heart block, status post transvenous pacemaker placement and anticipated permanent pacemaker insertion tomorrow. 3. History of gastroesophageal reflux disease. 4. Previous history of tobacco use. 5. History of depression. 6. Previous history of ablations, which were unsuccessful. 7. Chest pain and a mildly elevated troponin level, likely related to supply demand mismatch rather than ischemia. PLAN: The patient will hopefully go for a permanent pacemaker tomorrow. No additional recommendations are made. We will continue to follow. Hemodynamically stable. His respiratory status is stable. No additional recommendations are made. We will continue to follow. MMODL / IJN: [id number] /
--- NOTE | 2018-03-12 10:17 | PN ---
PROGRESS NOTE HISTORY: Mr. Connor is a 53-year-old male who presented with episode of ventricular tachycardia. Underwent ablation, had complete heart block. He has a temporary pacemaker and is scheduled to undergo permanent pacemaker implantation tomorrow by Dr. Iverson. He is doing well this morning. He is in sinus mechanism with normal conduction. At this point he has no chest pain. No dizziness. No palpitation. Hemodynamically, he is stable. He continues to be at this time on amitriptyline 150 mg daily, aspirin once a day, Lovenox 40 mg subcu daily, and Klonopin 0.5 mg daily. PHYSICAL EXAMINATION: Blood pressure 110/70 with a heart in the high 40s. LUNGS: Clear. HEART: Regular rhythm. S1, S2. No S3. No rub. ABDOMEN: Soft nontender. EXTREMITIES: No edema. Pacemaker site clean. LAB DATA: Revealed BUN and creatinine 13 and 0.67, potassium 4.6, hemoglobin 14.2. IMPRESSION: 1. Ventricular tachycardia, status post ablation. 2. Complete heart block, scheduled for permanent pacemaker implantation. RECOMMENDATIONS: From the cardiac standpoint, we will continue present therapy. Patient will proceed with permanent pacemaker, hopefully being able to be discharged home in the next 24 hours following that. MMODL / IJN: [id number] /
[2018-03-12] MEDS ORDERED: SODIUM CHLORIDE 0.9% 1,000 ML IV SCH (12:15)
[2018-03-12] MEDS: SODIUM CHLORIDE 0.9% 1,000 ML IV SCH (15:55)
[2018-03-12] MEDS: AMITRIPTYLINE HCL 50 MG TAB PO SCH (20:05)
[2018-03-12] MEDS: clonazePAM 0.5 MG TAB PO SCH (20:05)
[2018-03-13] MEDS: ceFAZolin 1,000 MG in DEXTROSE/WATER 1 50ML.BAG IVPB SCH ×3 (00:39→19:53)
[2018-03-13] MEDS: HYDROcodone/APAP 5-325MG 1 EACH TAB PO PRN ×2 (04:04→10:23)
[2018-03-13 05:13] LABS: HCT 42.8 % (39.0-53.0); HGB 13.8 gm/dL (13.0-17.5); MCH 29.4 pg (25.0-35.0); MCHC 32.3 g/dL (31.0-37.0); MCV 90.9 fL (80.0-100.0); Mean Platelet Volume 6.6; Platelet Count 252 k/uL (150-450); RBC 4.71 m/uL (4.30-5.90); RDW 12.8 % (11.5-15.5); WBC 9.4 k/uL (3.8-10.6)
[2018-03-13 05:41] LABS: Anion Gap 4 mmol/L; Blood Urea Nitrogen 17 mg/dL (9-20); Calcium 8.8 mg/dL (8.4-10.2); Carbon Dioxide 28 mmol/L (22-30); Chloride 106 mmol/L (98-107); Glucose 102 mg/dL (74-99); Phosphorus 4.2 mg/dL (2.5-4.5); Potassium 4.5 mmol/L (3.5-5.1); Sodium 138 mmol/L (137-145)
[2018-03-13] MEDS: HYDROmorphone 1 MG/ML 1 ML SYRINGE IVP PRN ×3 (07:48→20:16)
--- NOTE | 2018-03-13 07:57 | PN ---
PROGRESS NOTE Mr. Connor is a 53-year-old male who presented with ventricular tachycardia, underwent ablation and had episode of complete heart block. He has temporary pacemaker and scheduled to undergo permanent pacemaker implantation today. He is feeling well this morning. He is denying any chest pain. He is in complete heart block with an escape rhythm in the 40s. He denies any dizziness or palpitation. He has no nausea. He continues to be on amitriptyline, aspirin, Lovenox, clonidine. PHYSICAL EXAMINATION: Blood pressure 130/80 with a heart rate in 40s. LUNGS: Clear. HEART: Regular rate and rhythm, S1, S2. No S3. No rub. ABDOMEN: Soft, nontender. EXTREMITIES: No edema. Pacemaker site clean. LAB DATA: Revealed a hemoglobin of 13.8, white blood cell of 9.4, BUN and creatinine 17 and 0.75. IMPRESSION: 1. Status post ventricular tachycardia ablation. 2. Complete heart block. 3. Temporary pacemaker. RECOMMENDATION: Patient will proceed with permanent pacemaker implantation today and depending on his progress, further recommendation will be made. MMODL / IJN: [id number] /
[2018-03-13] MEDS: SODIUM CHLORIDE 0.9% 1,000 ML IV SCH (07:58)
[2018-03-13] MEDS: ENOXAPARIN 40 MG/0.4 ML SYRINGE SQ SCH (08:00)
[2018-03-13] MEDS: FAMOTIDINE 20 MG TAB PO SCH ×2 (08:00→20:18)
[2018-03-13] MEDS: ASPIRIN 325 MG TAB PO SCH (08:00)
[2018-03-13 09:51] VITALS: BMI 29.5
[2018-03-13] MEDS ORDERED: ceFAZolin 1,000 MG in SODIUM CHLORIDE 0.9% IRRIGATIO 250 ML IRRIGATION ONE (12:00)
[2018-03-13] MEDS ORDERED: ceFAZolin IN SWFI 2 GM/20 ML SYRINGE IVP ONE ×2 (12:00→16:48)
--- NOTE | 2018-03-13 12:54 | P.PN ---
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 Patient ended up coming to the emergency department pulse rate remain are bound 100 5260 bpm initially was started on Cardizem drip not successful cardiology were contacted and end up having him start on amiodarone at that point patient was sent to the intensive care unit and Dr. Iverson was notify on his admission. 03/08: Echocardiogram reveals EF greater than 55%, mild mitral regurgitation, mild tricuspid regurgitation, no pulmonary hypertension. Patient's rhythm converted to sinus rhythm while he was on amiodarone. Dr. Iverson is started him on verapamil with no plan for amiodarone at home. Plan is for V. tach ablation in the near future. Patient has remained in sinus rhythm and has been hemodynamically stable. He has been cleared for discharge by cardiology, Dr. Iverson and sewing machine repairer. Patient will be discharged home today in stable condition. After patient ambulated in the hallway he went into a wide QRS tachycardia and discharge was canceled. Patient was continued on amiodarone drip and verapamil was ordered at bedtime. 03/09: Patient is continued on amiodarone IV which was discontinued this morning but heart rate is still running in the 140s. Magnesium has been replaced. Patient is scheduled for EP study and ablation with Dr. Iverson today. Patient denies having any chest pain or shortness of breath, lightheadedness or dizziness. Blood pressure is 102/73. Pulse ox 94% on room air. 03/10: Patient remains in the intensive care unit. Patient denies any chest pain or palpitations. Yesterday he underwent EP study with Dr. Iverson and attempted for ablation but patient was then in complete heart block with temporary pacemaker set at 40 bpm. He has been maintaining a heart rate above 40. Plan is for biventricular permanent pacemaker implantation on Tuesday. Plan once AV block recovers likely V. tach will come back and at that point repeat EP study and ablation will be needed. Verapamil was discontinued. Systolic blood pressure 90. Pulse ox is 95%. Magnesium 1.7, blood sugar 167, creatinine 0.64, sodium 135, potassium 4.7, chloride 108, CO2 22. patient is currently on dopamine drip. Magnesium is been replaced. Patient is off amiodarone 03/11: Patient continues to remain in the intensive care unit, he denies any chest pain, palpitations, or shortness of breath. EP study was done and attempted ablation on 03/08. He continues with the temporary pacemaker with plans for biventricular permanent pacemaker implantation on Tuesday. Maintaining heart rate in the 40s, blood pressure stable oxygen 95% on 2 L via nasal cannula. Patient is off his dopamine infusion as of yesterday. BUN 17, creatinine 0.7, potassium 4.5, and magnesium 2.0. 03/12: Patient continues to maintain heart rate into the 40s, blood pressure 128/ 73, 97% on 2 L via nasal cannula. He denies any chest pain, palpitations, nausea vomiting or shortness of breath. He continues to be in complete heart block transvenous pacemaker in place, plans are still to proceed with permanent pacemaker on Tuesday. He continues to be monitored closely in the intensive care unit. 03/13: Patient is scheduled for pacemaker placement this afternoon at 3:30. He states he is sleeping okay last night. He did have a bowel movement yesterday. He denies having any chest pain, shortness of breath. conveyor monitor remains a third-degree heart block and temporary transvenous pacer in place. Blood pressure 116/69, pulse ox 94-96% on 2 L nasal cannula, patient has been afebrile. Review Of Systems: Constitutional: No fever, no chills, no night sweats. No weight change. No weakness, fatigue or lethargy. EENT: No headache. No blurred vision or double vision, no loss of vision. No loss of Hearing, no ringing in the ears, no dizziness. No nasal drainage or congestion. No epistaxis. No sore throat. Lungs: No shortness of breath, cough, no sputum production. No wheezing. Cardiovascular: No chest pain, no lower extremity edema. No palpitations. Irregular heartbeat No paroxysmal nocturnal dyspnea. No orthopnea. No lightheadedness or dizziness. No syncopal episodes. Abdominal: No abdominal pain. No nausea, vomiting. No diarrhea. No constipation. No bloody or tarry stools. Genitourinary: No dysuria, increased frequency, urgency. No urinary retention. Musculoskeletal: No myalgias. No muscle weakness, no gait dysfunction, no frequent falls. No back pain. No neck pain. Integumentary: No wounds, no lesions. No rash or pruritus. No unusual bruising. No change in hair or nails. Neurologic: No aphasia. No facial droop. No change in mentation. No head injury. No headache. No paralysis. No paresthesia. Psychiatric: No depression. No anxiety. No mood swings. Endocrine: No abnormal blood sugars. No weight change. No excessive sweating or thirst. Objective - Vital Signs Vital signs: Vital Signs Temp 98.1 F 03/13/18 04:00 Pulse 42 L 03/13/18 07:00 Resp 17 03/13/18 07:00 BP 130/85 03/13/18 07:00 Pulse Ox 95 03/13/18 07:33 Intake & Output 03/12/18 03/13/18 03/13/18 18:59 06:59 18:59 Intake Total 1565 845 25 Output Total 1250 860 100 Balance 315 -15 -75 Weight 90.9 kg Intake: IV 625 345 25 0.9 165 175 15 Magnesium Sulfate-D5w Pmx 200 1 gm In Dextrose/Water 1 100ml.bag @ 100 mls/hr IVPB Q1H SANDI Rx#: [id number] ceFAZolin 1,000 mg In 150 50 Dextrose/Water 1 50ml.bag @ 100 mls/hr IVPB Q8HR SANDI Rx#:[id number] tvp 10 110 120 10 Oral 940 500 Output: Urine 1250 860 100 Other: Voiding Method Indwelling Catheter Indwelling Catheter - Exam General appearance: Present: average body habitus, no acute distress, patient resting in the ICU bed - EENT Eyes: Present: EOMI, PERRLA ENT: Present: hearing grossly normal, normal oropharynx - Neck Neck: Present: normal ROM. Absent: lymphadenopathy, thyromegaly Thyroid: bilateral: normal size, negative: enlarged, nodule - Respiratory Respiratory: bilateral: CTA, negative: dullness, rhonchi, wheezing - Cardiovascular Rhythm: irregularly irregular, transvenous pacemaker in place Heart sounds: normal: S1, S2 - Gastrointestinal General gastrointestinal: Present: decreased bowel sounds, normal bowel sounds, soft. Absent: distended, hepatomegaly, organomegaly, splenomegaly, tenderness - Integumentary Integumentary: Present: normal. Absent: rash - Neurologic Neurologic: Present: CNII-XII intact. Absent: focal deficits - Musculoskeletal Musculoskeletal: Present: strength equal bilaterally. Absent: right sided weakness, left sided weakness - Psychiatric Psychiatric: Present: A&O x's 3, appropriate affect - Labs CBC & Chem 7: 03/13/18 04:26 03/13/18 04:26 Labs: Abnormal Lab Results - Last 24 Hours (Table) 03/13/18 Range/Units 04:26 Glucose 102 H (74-99) mg/dL Assessment and Plan Plan: 1 ventricular tachycardia: Amiodarone drip discontinued, verapamil has been discontinued, EP study with Dr. Iverson with ablation and complete heart block currently with temporary pacemaker. Plan is for biventricular permanent pacemaker implantation today. Plan once AV block recovers likely V. tach will come back and at that point repeat EP study and ablation will be needed. 2 chest pain and mildly elevated troponin: Secondary to ventricular tachycardia. 3 severe GERD: Has been on omeprazole which will be continued for now. 4 jaw pain: Post with cannot recently with his dentist is supposed to go for further workup on it I can feel or see any abscess patient will be on smaller dose of hydrocodone for pain. 5 chronic depression: Has been on Elavil continue medication still on smaller dose of clonazepam for insomnia as well. 6 GI prophylaxis: Patient is on omeprazole. 7 DVT prophylaxis: Continue anticoagulation for now. CODE STATUS: Full code. Discharge plan: Home Impression and plan of care have been directed as dictated by the signing physician. Maria M Convery nurse practitioner acting as scribe for signing physician.
--- NOTE | 2018-03-13 15:00 | P.PN ---
Subjective Progress Note Date: 03/13/18 53-year-old male patient with recurrent SVTs, underwent ablation and subsequently his course was. By development of a third-degree AV block. The ablation was done on 03/09/2018. The patient has a transvenous pacemaker in place. The plan is to proceed with a permanent pacemaker insertion today. He is hemodynamically stable. His heart rate is the low 40s. No dizziness. No altered mentation. No syncope. No chest pain. No drop in urine output. Renal function stable. He is being monitored in the intensive care unit with the intention of putting a permanent pacemaker Objective - Vital Signs Vital signs: Vital Signs Temp 98.9 F 03/13/18 12:00 Pulse 42 L 03/13/18 14:00 Resp 13 03/13/18 14:00 BP 127/75 03/13/18 14:00 Pulse Ox 95 03/13/18 14:00 Intake & Output 03/12/18 03/13/18 03/13/18 18:59 06:59 18:59 Intake Total 1565 845 370 Output Total 1250 860 910 Balance 315 -15 -540 Weight 90.9 kg 90.9 kg Intake: IV 625 345 370 0.9 165 175 15 Magnesium Sulfate-D5w Pmx 200 1 gm In Dextrose/Water 1 100ml.bag @ 100 mls/hr IVPB Q1H [facility] Rx#: [id number] Sodium Chloride 0.9% 1, 235 000 ml @ 50 mls/hr IV . Q20H [facility] Rx#:[id number] ceFAZolin 1,000 mg In 150 50 50 Dextrose/Water 1 50ml.bag @ 100 mls/hr IVPB Q8HR [facility] Rx#:[id number] tvp 10 110 120 70 Oral 940 500 Output: Urine 1250 860 910 Other: Voiding Method Indwelling Catheter Indwelling Catheter Indwelling Catheter - Exam - Constitutional General appearance: Present: average body habitus, no acute distress - EENT Eyes: Present: EOMI, PERRLA ENT: Present: hearing grossly normal, normal oropharynx - Neck Neck: Present: normal ROM. Absent: lymphadenopathy, thyromegaly Thyroid: bilateral: normal size, negative: enlarged, nodule - Respiratory Respiratory: bilateral: CTA, negative: dullness, rhonchi, wheezing - Cardiovascular Rhythm: irregularly irregular, transvenous pacemaker in place Heart sounds: normal: S1, S2 - Gastrointestinal General gastrointestinal: Present: decreased bowel sounds, normal bowel sounds, soft. Absent: distended, hepatomegaly, organomegaly, splenomegaly, tenderness - Integumentary Integumentary: Present: normal. Absent: rash - Neurologic Neurologic: Present: CNII-XII intact. Absent: focal deficits - Musculoskeletal Musculoskeletal: Present: strength equal bilaterally. Absent: right sided weakness, left sided weakness - Psychiatric Psychiatric: Present: A&O x's 3, appropriate affect - Labs CBC & Chem 7: 03/13/18 04:26 03/13/18 04:26 Labs: Abnormal Lab Results - Last 24 Hours (Table) 03/13/18 Range/Units 04:26 Glucose 102 H (74-99) mg/dL Assessment and Plan Plan: 1 ventricular tachycardia: Amiodarone drip discontinued, verapamil has been discontinued, as well as dopamine drip, EP study with Dr. Iverson with ablation and complete heart block currently with temporary pacemaker. Plan is for biventricular permanent pacemaker . Despite all this, the patient remains hemodynamically stable in the intensive care unit awaiting his current pacemaker insertion. 2 chest pain and mildly elevated troponin: Secondary to ventricular tachycardia. 3 severe GERD: Continue on omeprazole 4 jaw pain: Was seen dentist and is supposed to go for further workup, no abscess, patient will be on small dose of hydrocodone for pain. 5 chronic depression: Elavil 150mg at HS 6 GI prophylaxis: Patient is on omeprazole. 7 DVT prophylaxis: Continue Lovenox LUCIO Proceed with a permanent pacemaker insertion. Condition is stable. We'll continue to follow
[2018-03-13] MEDS ORDERED: IV FLUID CONTINUATION 200 ML IV ONE (16:00)
[2018-03-13] MEDS ORDERED: fentaNYL (PF) 50 MCG/ML 2 ML AMP ONE (16:00)
[2018-03-13] MEDS ORDERED: PROPOFOL 10 MG/ML 20 ML VIAL IV ONE (16:00)
[2018-03-13] MEDS ORDERED: MIDAZOLAM 2 MG/2 ML VIAL ONE (16:00)
[2018-03-13] MEDS ORDERED: LIDOCAINE 1% INJ 10MG/ML (20 ML MDV) ONE ×2 (16:00→16:40)
[2018-03-13] MEDS ORDERED: HYDROmorphone (PF) 1 MG/ML ONE (16:00)
[2018-03-13] MEDS ORDERED: IOPAMIDOL-250 50ML BTL IV ONE ×2 (16:26→19:42)
[2018-03-13] MEDS ORDERED: SODIUM CHLORIDE 0.9% 1,000 ML IV ONE (16:47)
[2018-03-13] MEDS ORDERED: LIDOCAINE 1% INJ 10MG/ML (20 ML MDV) SQ ONE (16:53)
[2018-03-13] MEDS ORDERED: ACETAMINOPHEN TAB 325 MG TAB PO PRN (20:00)
[2018-03-13] MEDS ORDERED: ACETAMINOPHEN IV (For NPO) 1,000 MG in EMPTY BAG 1 BAG IVPB ONE (20:00)
[2018-03-13] MEDS ORDERED: HYDROcodone/APAP 5-325MG 1 EACH TAB PO PRN (20:00)
[2018-03-13] MEDS: AMITRIPTYLINE HCL 50 MG TAB PO SCH (20:18)
[2018-03-13] MEDS: clonazePAM 0.5 MG TAB PO SCH (20:18)
--- NOTE | 2018-03-13 21:12 | PCN ---
PROCEDURE NOTE Eugene Connor is a 53-year-old male patient who presented with fascicular ventricular tachycardia. He had undergone an VT ablation at [place] which was unsuccessful. This was about 2 years back. At that time, he had coronary angiography performed, which showed normal coronary arteries. He presented with recurrent drug refractory VT. He was taken to the EP lab and the VT was mapped in detail. The diastolic activation map and the VT activation was mapped in diastole and the critical portion of the circuit was identified. This was very close to the His bundle to the distal his bundle about 8 mm away from it. RF ablation here did not result in termination, but as we moved closer to the His bundle with mechanical pressure itself, the tachycardia terminated but with complete heart block. Therefore, while no further RF ablation was applied at that particular site, which was mm away from the critical circuit based on our mapping, a biventricular pacemaker was advised and this was implanted today. The left pectoral area was prepped and draped as per protocol. 1% lidocaine was used for local anesthesia. A 4 cm incision was made parallel to the deltopectoral groove, about 1.5 cm medial to it. The incision was carried down to the level of the pectoralis muscle. A subfascial pocket was made. Hemostasis was assured. The left axillary vein was accessed at 3 separate points under fluoroscopy and via appropriately- sized sheaths 3 leads were positioned. The right atrial lead was a [employer] model #2088, TC 52 cm in length and serial number [id number]. This was screwed in the right atrial appendage. The P waves were 4.7 mV. Pacing impedance of 579 ohms, pacing threshold 0.6 V at 0.5 milliseconds. 10 V test negative. The RV lead was positioned in the RV apex. This was a 58 cm, model #2088TC, 58 cm in length and serial number [id number]. This was screwed in the RV apex and the R-waves were 13.5 mV. Pacing impedance of 776 ohms, pacing threshold 0.8 V at 0.5 milliseconds. 10 V test negative. The protocol was followed. The LV lead was finally positioned in the posterolateral vein. The coronary sinus was accessed. The coronary sinus venography was performed. 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 Close by was a venous connection at 90 degree angle to the anterior vein and even though the angioplasty wire could be placed into the anterior vein, the lead would not pass through because of the very small caliber of this connecting vein to the anterior vein as well as the 90 degree bend that it took, despite multiple attempts. The lateral vein was also attempted, but this was a very small caliber vein. Next the posterolateral vein was then evaluated and cannulated using sub-selected catheter. While this was a large vein with multiple tributaries, the main issue was diaphragmatic stimulation at an thresholds of 4 V at 0.5 milliseconds, virtually all along this vein. Finally the [employer] ,diagnostic medical sonographer was exchanged for a different [employer] guest services lead, model #1458 QL 75 cm in length and serial number [id number]. There was increased pacing between poles 1 and 2 and 3 and 4 allowing for more proximal pacing hopefully to avoid diaphragmatic stimulation. However, diaphragmatic stimulation could not be avoided but the thresholds in poles 3 and 4 were excellent. The final threshold in poles 3 and 4 was 0.6 V at 0.5 milliseconds and diaphragmatic stimulation was noted at 4 V. there was non capture in the distal poles leads 1 and 2 which was placed in one of the tiny branches for stability, and there was complete non capture in these poles in this tiny vessel, but still diaphragmatic stimulation was noted. However, the lead was very stable. The lead was also interrogated and multiple different configurations of the RV coil as well as the can but LV 3, 4 pacing was the best option. This was a long procedure requiring cannulation of multiple veins, multiple interrogations, multiple sheaths, inner sheaths, sub selecting sheaths, numerous guidewires and leads to finally get the best possible option for the patient. The leads were secured to the underlying pectoralis fascia using 2 nonabsorbable sutures each. The leads were connected to the generator ([employer] model [id number] serial #[id number]). The leads and the generator were then placed in subfascial pocket. The wound was closed in 3 layers and dressed per protocol. The device was then programmed to DDD mode 50 ppm with normal AV delay with biventricular pacing with a with LV pacing. The patient tolerated the procedure well without any acute complications. RESULTS: Successful biventricular pacemaker implantation for the patient with complete heart block status post successful VT ablation and the critical portion of the fascicular VT circuit was critically related and extremely close to the very distal HIS bundle. MMJHON / PEPEN: [id number] /
[2018-03-13] MEDS: ceFAZolin IN SWFI 2 GM/20 ML SYRINGE IVP SCH (22:27)
[2018-03-14] MEDS: ceFAZolin IN SWFI 2 GM/20 ML SYRINGE IVP SCH ×3 (03:39→16:07)
[2018-03-14] MEDS: HYDROmorphone 1 MG/ML 1 ML SYRINGE IVP PRN ×3 (03:43→13:26)
[2018-03-14 05:01] LABS: HCT 44.3 % (39.0-53.0); HGB 14.7 gm/dL (13.0-17.5); MCH 30.4 pg (25.0-35.0); MCHC 33.1 g/dL (31.0-37.0); MCV 91.7 fL (80.0-100.0); Mean Platelet Volume 6.5; Platelet Count 270 k/uL (150-450); RBC 4.83 m/uL (4.30-5.90); RDW 12.8 % (11.5-15.5); WBC 8.9 k/uL (3.8-10.6)
[2018-03-14 05:15] LABS: Anion Gap 8 mmol/L; Blood Urea Nitrogen 20 mg/dL (9-20); Calcium 8.8 mg/dL (8.4-10.2); Carbon Dioxide 24 mmol/L (22-30); Chloride 105 mmol/L (98-107); Glucose 114 mg/dL (74-99); Phosphorus 4.3 mg/dL (2.5-4.5); Potassium 4.7 mmol/L (3.5-5.1); Sodium 137 mmol/L (137-145)
[2018-03-14] MEDS: HYDROcodone/APAP 5-325MG 1 EACH TAB PO PRN ×2 (06:54→12:02)
--- NOTE | 2018-03-14 08:01 | PN ---
PROGRESS NOTE Mr. Connor is a 53-year-old male who presented with ventricular tachycardia, underwent ablation and subsequently had complete heart block, underwent permanent pacemaker implantation yesterday. He is doing well this morning. He is denying any symptoms of chest pain. No dizziness. No palpitation. He denies any nausea. He underwent a biventricular pacemaker implantation. He is pacing 100%. He continues to be on aspirin once a day in addition to clonidine, amitriptyline. PHYSICAL EXAMINATION: Blood pressure 124/80 with a heart rate in the 90s. LUNGS: Clear. HEART: Regular rate and rhythm, S1, S2. No S3 with a systolic murmur. No diastolic murmur. Pacemaker site clean. ABDOMEN: Soft, nontender. EXTREMITIES: No edema. IMPRESSION: 1. Status post ventricular tachycardia. 2. Status post prior Bi-V pacing with complete heart block. RECOMMENDATION: Will interrogate the device today. If he remains stable, I would expect he should be able to be discharged home soon and followed as an outpatient. MMODL / IJN: [id number] /
[2018-03-14] MEDS: ASPIRIN 325 MG TAB PO SCH (09:45)
[2018-03-14] MEDS: FAMOTIDINE 20 MG TAB PO SCH (09:45)
[2018-03-14] MEDS: ENOXAPARIN 40 MG/0.4 ML SYRINGE SQ SCH (09:45)
--- NOTE | 2018-03-14 10:23 | P.PN ---
Subjective Progress Note Date: 03/14/18 On today's evaluation of 03/14/2018, the patient is status post permanent pacemaker insertion. The patient had a biventricular pacemaker implantation for complete heart block and the patient is also status post successful VT ablation. The patient is doing very well. His cardiac rhythm is paced for now. Hemodynamically stable. Chest x-ray following the procedure shows no evidence of any pneumothorax. There are some atelectatic changes in lung bases bilaterally. No fever. No chills. No syncope. No chest pain. Is ambulating. Blood work is all within normal limits. Objective - Vital Signs Vital signs: Vital Signs Temp 98.4 F 03/14/18 08:00 Pulse 93 03/14/18 10:00 Resp 16 03/14/18 10:00 BP 114/75 03/14/18 10:00 Pulse Ox 92 L 03/14/18 10:00 Intake & Output 03/13/18 03/14/18 03/14/18 18:59 06:59 18:59 Intake Total 770 600 250 Output Total 910 0 Balance -140 600 250 Weight 90.9 kg 88.6 kg Intake: IV 770 100 0.9 15 ACETAMINOPHEN IV (For NPO 100 ) 1,000 mg In Empty Bag 1 bag @ 400 mls/hr IVPB ONCE ONE Rx#:[id number] Sodium Chloride 0.9% 1, 235 000 ml @ 50 mls/hr IV . Q20H [facility] Rx#:[id number] ceFAZolin 1,000 mg In 50 Dextrose/Water 1 50ml.bag @ 100 mls/hr IVPB Q8HR [facility] Rx#:[id number] tvp 10 70 Oral 500 250 Output: Urine 910 0 Other: Voiding Method Indwelling Catheter Urinal Urinal # Voids 0 0 - Exam - Constitutional General appearance: Present: average body habitus, no acute distress - EENT Eyes: Present: EOMI, PERRLA ENT: Present: hearing grossly normal, normal oropharynx - Neck Neck: Present: normal ROM. Absent: lymphadenopathy, thyromegaly Thyroid: bilateral: normal size, negative: enlarged, nodule - Respiratory Respiratory: bilateral: CTA, negative: dullness, rhonchi, wheezing - Cardiovascular Rhythm: The patient has a regular paced rhythm. There is a pacemaker pocket over the left anterior chest area and the overlying skin is dry clean and intact. Appropriate dressing is applied. Heart sounds: normal: S1, S2 - Gastrointestinal General gastrointestinal: Present: decreased bowel sounds, normal bowel sounds, soft. Absent: distended, hepatomegaly, organomegaly, splenomegaly, tenderness - Integumentary Integumentary: Present: normal. Absent: rash - Neurologic Neurologic: Present: CNII-XII intact. Absent: focal deficits - Musculoskeletal Musculoskeletal: Present: strength equal bilaterally. Absent: right sided weakness, left sided weakness - Psychiatric Psychiatric: Present: A&O x's 3, appropriate affect - Labs CBC & Chem 7: 03/14/18 04:38 03/14/18 04:38 Labs: Abnormal Lab Results - Last 24 Hours (Table) 03/14/18 Range/Units 04:38 Glucose 114 H (74-99) mg/dL Assessment and Plan Plan: 1 ventricular tachycardia: The patient is post successful VT ablation. The patient also underwent a successful biventricular pacemaker implantation for complete heart block and the patient is postop day #1. The patient's hemodynamically stable and asymptomatic at this point in time. 2 chest pain and mildly elevated troponin: Secondary to ventricular tachycardia. 3 severe GERD: Continue on omeprazole 4 jaw pain: Was seen dentist and is supposed to go for further workup, no abscess, patient will be on small dose of hydrocodone for pain. 5 chronic depression: Elavil 150mg at HS 6 GI prophylaxis: Patient is on omeprazole. 7 DVT prophylaxis: Continue Lovenox Plan Will monitor this patient's condition for another 24 hours in ICU. Cardiology is on the case. Possible discharge home with the next 24 hours if condition remains stable and there is no other cardiac rhythm changes or complications.
--- NOTE | 2018-03-14 11:41 | XR ---
EXAMINATION TYPE: XR chest 2V DATE OF EXAM: 03/14/2018 COMPARISON: 03/07/2018 INDICATION: Lead placement check TECHNIQUE: Frontal and lateral views of the chest are obtained. FINDINGS: The heart size is normal. The pulmonary vasculature is normal. The lungs are clear. Electronic device is placed over the left chest. Leads are directed in the expe cted regions. No pneumothorax is evident. IMPRESSION: 1. No pneumothorax post electronic device placement.
--- NOTE | 2018-03-14 12:40 | P.PRLE ---
RE: Eugene Addison Dear Maribel Eugene Addison was admitted to [facility] with sustained ventricular tachycardia. The tachycardia was consistent with ventricular tachycardia originating in the inferior septal area and a diagnostic EP study was performed after he failed multiple medications. He has failed and ablation at [place] 2 years back and has been on oral amiodarone as well as beta blockers in the past He has verapamil sensitive fascicular ventricular tachycardia. This VT circuit involves the Purkinje fiber network in the left posterior fascicle in his case. However this was quite a large macro reentrant arrhythmia and the critical portion of this VT was very close to the distal His bundle about 8 mm away. Careful ablation in the mid portion of the circuit did not terminate the arrhythmia Ablation at the entrance site about a centimeter away from the distal his did not terminate the arrhythmia Ablation just proximal to the exit of the circuit did not result in termination of the arrhythmia With catheter manipulation just beyond the distal his, millimeters away from where I thought the critical circuit was, at the entrance, termination occurred with mechanical pressure of the after along with development of heart block. He remained in complete heart block with a stable narrow QRS with heart rates ranged from 40-50 beats a minute but had no further ventricular tachycardia Prior to that his ventricular tachycardia was completely uncontrollable despite IV amiodarone and verapamil Therefore a biventricular pacemaker was implanted for biventricular pacing, specifically to avoid RV pacing I was asked him to stop verapamil completely His critical VT circuit is extremely close to the distal His Bundle and as long as he remains in heart block he should not have VT. If his heart block recovers, his VT will recur We will see him in the device clinic and he will continue to see Dr. Nicolas at the cardiology office If you have any questions please not hesitate to me a call Sincerely Patricio Iverson
--- NOTE | 2018-03-14 13:30 | P.DS ---
Providers Date of admission: 03/06/18 20:21 Expected date of discharge: 03/14/18 Attending physician: Gage Fernandez Consults: 03/06/18 20:20 Consult Physician Urgent Consulting Provider: Jeovany Loera Consult Reason/Comments: svt Do you want consulting provider notified?: Yes 03/06/18 20:45 Consult Physician Urgent Consulting Provider: Fernando Oconnell Consult Reason/Comments: arrhythmia Do you want consulting provider notified?: Yes 03/07/18 08:29 Consult Physician Urgent Consulting Provider: Patricio Iverson Consult Reason/Comments: SVT Do you want consulting provider notified?: Already Contacted Primary care physician: Maribel Goel [facility] Course: 53-year-old male one of Dr. Goel patient who seen a fur nailer in [facility] with history of arrhythmia claimed to be SVT versus ventricular tachycardia was hospitalized last time in [facility] 2 years ago for an episode of severe tachycardia with rapid ventricular spine was placed on amiodarone at the time without anticoagulation had attempt ablation therapy not successful was placed on metoprolol and taking off amiodarone for the last 2 years and been doing well. 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 Patient ended up coming to the emergency department pulse rate remain are bound 100 5260 bpm initially was started on Cardizem drip not successful cardiology were contacted and end up having him start on amiodarone at that point patient was sent to the intensive care unit and Dr. Iverson was notify on his admission. 03/08: Echocardiogram reveals EF greater than 55%, mild mitral regurgitation, mild tricuspid regurgitation, no pulmonary hypertension. Patient's rhythm converted to sinus rhythm while he was on amiodarone. Dr. Iverson is started him on verapamil with no plan for amiodarone at home. Plan is for V. tach ablation in the near future. Patient has remained in sinus rhythm and has been hemodynamically stable. He has been cleared for discharge by cardiology, Dr. 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 Patient will be discharged home today in stable condition. After patient ambulated in the hallway he went into a wide QRS tachycardia and discharge was canceled. Patient was continued on amiodarone drip and verapamil was ordered at bedtime. 03/09: Patient is continued on amiodarone IV which was discontinued this morning but heart rate is still running in the 140s. Magnesium has been replaced. Patient is scheduled for EP study and ablation with Dr. Iverson today. Patient denies having any chest pain or shortness of breath, lightheadedness or dizziness. Blood pressure is 102/73. Pulse ox 94% on room air. 03/10: Patient remains in the intensive care unit. Patient denies any chest pain or palpitations. Yesterday he underwent EP study with Dr. Iverson and attempted for ablation but patient was then in complete heart block with temporary pacemaker set at 40 bpm. He has been maintaining a heart rate above 40. Plan is for biventricular permanent pacemaker implantation on Tuesday. Plan once AV block recovers likely V. tach will come back and at that point repeat EP study and ablation will be needed. Verapamil was discontinued. Systolic blood pressure 90. Pulse ox is 95%. Magnesium 1.7, blood sugar 167, creatinine 0.64, sodium 135, potassium 4.7, chloride 108, CO2 22. patient is currently on dopamine drip. Magnesium is been replaced. Patient is off amiodarone 03/11: Patient continues to remain in the intensive care unit, he denies any chest pain, palpitations, or shortness of breath. EP study was done and attempted ablation on 03/08. He continues with the temporary pacemaker with plans for biventricular permanent pacemaker implantation on Tuesday. Maintaining heart rate in the 40s, blood pressure stable oxygen 95% on 2 L via nasal cannula. Patient is off his dopamine infusion as of yesterday. BUN 17, creatinine 0.7, potassium 4.5, and magnesium 2.0. 2: Patient continues to maintain heart rate into the 40s, blood pressure 128/ 73, 97% on 2 L via nasal cannula. He denies any chest pain, palpitations, nausea vomiting or shortness of breath. He continues to be in complete heart block transvenous pacemaker in place, plans are still to proceed with permanent pacemaker on Tuesday. He continues to be monitored closely in the intensive care unit. 03/13: Patient is scheduled for pacemaker placement this afternoon at 3:30. He states he is sleeping okay last night. He did have a bowel movement yesterday. He denies having any chest pain, shortness of breath. campus monitor remains a third-degree heart block and temporary transvenous pacer in place. Blood pressure 116/69, pulse ox 94-96% on 2 L nasal cannula, patient has been afebrile. 03/14: Yesterday, patient underwent successful biventricular pacemaker implantation for complete heart block. Patient has been seen by Dr. Gardner and plan is to interrogate device today and possible discharge Blood pressure is 124/84, heart rate running in the 80s and 90s, pulse ox 92-95 % on room air. Dr. Iverson is also evaluated the patient and cleared him for discharge after he receives his 4 PM antibiotics. Patient will be discharged home today in stable condition. Discharge diagnoses: 1 ventricular tachycardia status post EP study with Dr. Iverson with ablation and ensuing complete heart block status post biventricular permanent pacemaker implantation 2 chest pain and mildly elevated troponin: Secondary to ventricular tachycardia. 3 severe GERD 4 jaw pain: Post with cannot recently with his dentist is supposed to go for further workup 5 recurrent depression Discharge plan: Home Impression and plan of care have been directed as dictated by the signing physician. Maria M Echeverria nurse practitioner acting as scribe for signing physician. Patient Condition at Discharge: Good Plan - Discharge Summary Discharge Rx Participant: Yes New Discharge Prescriptions: New Aspirin 325 mg PO DAILY tab Continue HYDROcodone/APAP 7.5-325MG [[place] 7.5-325] 1 tab PO Q4H PRN PRN Reason: Pain Amitriptyline HCl [Elavil] 150 mg PO HS Omeprazole [PriLOSEC] 20 mg PO DAILY clonazePAM [KlonoPIN] 0.5 mg PO HS Discontinued Metoprolol Tartrate [Lopressor] 25 mg PO BID Discharge Medication List Amitriptyline HCl [Elavil] 150 mg PO HS 03/06/18 [History] HYDROcodone/APAP 7.5-325MG [[place] 7.5-325] 1 tab PO Q4H PRN 03/06/18 [History] Omeprazole [PriLOSEC] 20 mg PO DAILY 03/06/18 [History] clonazePAM [KlonoPIN] 0.5 mg PO HS 03/07/18 [History] Aspirin 325 mg PO DAILY tab 03/08/18 [Rx] Follow up Appointment(s)/Referral(s): [facility] [Provider Group] - 1 Week (Device Clinic Appointment Tuesday03/20/2018 at 9:45am) Modesto Nicolas MD [STAFF PHYSICIAN] - 2 Weeks (Dr Nicolas appointment Tuesday03/24/2018 at 2:00 pm) Maribel Goel DO [Primary Care Provider] - 1 Week (Appt made for 03/14/2018 at 10:20am ) Patient Instructions/Handouts: Heart Palpitations (DC), Cardiac Ablation (IP), Surgical Site Infections (DC), Pacemaker (DC) Activity/Diet/Wound Care/Special Instructions: Pt would like DC RX at discharge. PATIENT EDUCATION MATERIAL Instructions following a heart rhythm device implant. 1. Keep dressing DRY for 5 DAYS. You may cover the area with Saran or Cling Wrap, prior to a shower. 2. The dressing will be removed in the Device Clinic at [facility]. Absorbable sutures were used to close the wound. 3. Avoid raising the left arm above the shoulder level. 4 week restriction 4. Avoid arm movements, like backscratching, rubbing the head, or pulling on a cord. 4 weeks restriction 5. Gentle range of motion movements of the shoulder, closest to the incision should be performed to avoid a frozen shoulder. (Pendulum exercises of the shoulder) 6. The opposite arm may be used freely. 7. Avoid driving for 7 days. 8. Avoid activities such as golfing, swimming, weed whacking, lifting more than 10 pounds weight, bowling, gymnastics and weight training/lifting. (6 weeks restriction) 9. Activities such as wood chopping with an axe, pull-ups in the gymnasium, power lifting, arc-welding, being close to home induction cooktops will always be a problem. 10. Arm sling is only a reminder not to raise the arm above the head. You do not need to keep the arm completely immobilized. Your free to move the arm and use it and for normal activities. In case of any problems, please call [facility], @ [phone], Attention: Device Clinic Device clinic follow-up in 5 days Follow-up with primary fur nailer in 2-4 weeks Discharge Disposition: HOME SELF-CARE
[2018-03-14] MEDS: ONDANSETRON 4 MG/2 ML VIAL IVP PRN (14:22)
[2018-03-14 15:14] VITALS: PULSE 86
[2018-03-14 16:05] VITALS: RESP 14; TEMP 98.6
[2018-03-14 16:07] VITALS: BP 131/85
== END 2018-03-14 16:51 | disposition home or self-care (01) | DRG 243 ==
LOC: EC 16:37 → 2SICU 20:21
PROVIDERS: ADMIT Internal Medicine Geriatric Medicine; ATTEND Internal Medicine Geriatric Medicine
PROC: 4A023FZ Measurement of Cardiac Rhythm, Percutaneous Approach (ICD-10-PCS; 2018-03-09)
PROC: 02K83ZZ Map Conduction Mechanism, Percutaneous Approach (ICD-10-PCS; 2018-03-09)
PROC: 4A0234Z Measurement of Cardiac Electrical Activity, Percutaneous Approach (ICD-10-PCS; 2018-03-09)
PROC: 02583ZZ Destruction of Conduction Mechanism, Percutaneous Approach (ICD-10-PCS; 2018-03-09 14:09)
PROC: 02H63JZ Insertion of Pacemaker Lead into Right Atrium, Percutaneous Approach (ICD-10-PCS; 2018-03-13)
PROC: 02HK3JZ Insertion of Pacemaker Lead into Right Ventricle, Percutaneous Approach (ICD-10-PCS; 2018-03-13)
PROC: 0JH607Z Insertion of Cardiac Resynchronization Pacemaker Pulse Generator into Chest Subcutaneous Tissue and Fascia, Open Approach (ICD-10-PCS; principal; 2018-03-13 16:00)
PROC: 02HL3JZ Insertion of Pacemaker Lead into Left Ventricle, Percutaneous Approach (ICD-10-PCS; 2018-03-13 16:00)
DX: I47.1 Supraventricular tachycardia (principal); F33.9 Major depressive disorder, recurrent, unspecified; I24.8 Other forms of acute ischemic heart disease; I44.2 Atrioventricular block, complete; K21.9 Gastro-esophageal reflux disease without esophagitis; G47.00 Insomnia, unspecified; I45.2 Bifascicular block; R68.84 Jaw pain; I08.1 Rheumatic disorders of both mitral and tricuspid valves; Z79.82 Long term (current) use of aspirin; Z79.899 Other long term (current) drug therapy; Z83.3 Family history of diabetes mellitus; Z86.79 Personal history of other diseases of the circulatory system; Z87.891 Personal history of nicotine dependence
CPT/HCPCS: 33208; 33225; 36415; 71045; 71046; 80048; 80053; 80061; 81003; 82550; 82553; 83605; 83735; 83880; 84100; 84439; 84443; 84484; 85025; 85027; 85347; 85379; 85610; 85730; 93005; 93306; 93613; 93623; 93654; 96361; 96365; 96366; 96367; 96375; 96376; 99291